=== PATIENT | female | born 1935 | race American Indian/Alaskan Native ===

== ENCOUNTER 2016-09-03 08:46 | Inpatient (IN) | payer MEDICARE ==
--- NOTE | 2016-09-03 10:15 | Emergency Department Report ---
HPI - General Chief Complaint: Abdominal Pain Time Seen by Provider: 09/03/16 09:33 - HPI HPI: This is a 81-year-old Afro-Macedonian female who presents to the emergency department from home with her daughter at bedside with the complaint of progressive worsening abdominal distention over the past 2 weeks. More recently has started to cause her to have shortness of breath. She denies any abdominal pain or chest pain. 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 She also has a history of remote breast cancer with bilateral mastectomies. The daughter says that the patient started having this abdominal distention a few weeks ago when she was placed on Xarelto. Since that time she has been switched to Eloquist but the distention is continued. She denies any nausea, vomiting, fever, back pain, dysuria. She has not taken anything for symptoms prior to presentation. Her primary care doctor is Brigido reynolds. No recent travel or sick contacts at home. ED Past Medical Hx - Past Medical History Previous Medical History?: Yes Hx Hypertension: Yes Hx Diabetes: Yes Hx of Cancer: Yes (Bilat breast) Additional medical history: B lower ext DVT's - Surgical History Past Surgical History?: Yes Hx Breast Surgery: Yes (bilateral mastectomy) Additional Surgical History: right foot surgery. hysterectomy - Social History Smoking Status: Never Smoker Substance Use Type: None - Medications Home Medications: Home Medications Medication Instructions Recorded Confirmed Last Taken Type Amlodipine Besylate/Benazepril 1 each PO Q12H 09/03/16 09/03/16 Unknown History [Amlodipine-Benazepril 5-20 mg] Apixaban [Eliquis] 5 mg PO DAILY 09/03/16 09/03/16 09/02/16 History Aspirin 81 mg PO DAILY 09/03/16 09/03/16 Unknown History AtorvaSTATin [Lipitor] 40 mg PO DAILY 09/03/16 09/03/16 Unknown History Dorzolamide HCl 1 drop OU BID 09/03/16 09/03/16 Unknown History Ergocalciferol [Vitamin D2] 1 cap PO QWEEK 09/03/16 09/03/16 Unknown History Glimepiride [Amaryl] 4 mg PO BID 09/03/16 09/03/16 Unknown History Hydrochlorothiazide [Hctz] 12.5 mg PO QDAY 09/03/16 09/03/16 Unknown History Insulin Glargine [Lantus] 6 unit SUB-Q QHS 09/03/16 09/03/16 Unknown History LORazepam [Ativan] 0.5 mg PO BID PRN 09/03/16 09/03/16 Unknown History Naproxen [Naprosyn] 500 mg PO BID 09/03/16 09/03/16 Unknown History Propranolol HCl 80 mg PO BID 09/03/16 09/03/16 Unknown History Travoprost (Benzalkonium) 1 drop OU HS 09/03/16 09/03/16 Unknown History [Travoprost 0.004% Eye Drop] metFORMIN [Glucophage] 1,000 mg PO BID 09/03/16 09/03/16 Unknown History ED Review of Systems ROS: Stated complaint: SOB Other details as noted in HPI Comment: All other systems reviewed and negative Constitutional: denies: chills, fever Eyes: denies: eye pain, eye discharge, vision change ENT: denies: ear pain, throat pain Respiratory: shortness of breath. denies: cough, wheezing Cardiovascular: denies: chest pain, palpitations Gastrointestinal: other (abd distention). denies: nausea, vomiting Genitourinary: denies: urgency, dysuria, discharge Musculoskeletal: denies: back pain, joint swelling, arthralgia Skin: denies: rash, lesions Neurological: denies: headache, weakness, paresthesias Physical Exam - Physical Exam Vital Signs: Vital Signs 09/03/16 09/03/16 08:55 09:18 Temperature 97.6 F Pulse Rate 90 Respiratory 18 18 Rate Blood Pressure 107/65 O2 Sat by Pulse 96 Oximetry Physical Exam: GENERAL: The patient is well-developed well-nourished. HEENT: Normocephalic. Atraumatic. Extraocular motions are intact. Patient has moist mucous membranes. Pupils equal reactive to light bilaterally. NECK: Supple. Trachea is midline. CHEST/LUNGS: Coarse breath sounds throughout the chest. No tachypnea or accessory muscle use. There is no respiratory distress noted. HEART/CARDIOVASCULAR: Regular. There is no tachycardia. There is no gallop rub or murmur. ABDOMEN: Abdomen is soft, nontender. Positive fluid wave consistent with ascites. Patient has normal bowel sounds. There is moderate to severe abdominal distention but it is not rigid. SKIN: There is no rash. There is no diaphoresis. NEURO: The patient is awake, alert, and oriented. The patient is cooperative. The patient has no focal neurologic deficits. The patient has normal speech. MUSCULOSKELETAL: There is no tenderness or deformity. There is no limitation range of motion. There is no evidence of acute injury. ED Course Vital Signs 09/03/16 09/03/16 08:55 09:18 Temperature 97.6 F Pulse Rate 90 Respiratory 18 18 Rate Blood Pressure 107/65 O2 Sat by Pulse 96 Oximetry ED Medical Decision Making - Lab Data Result diagrams: 09/03/16 10:03 09/03/16 10:03 - EKG Data -: EKG Interpreted by Me EKG shows normal: sinus rhythm (with sinus arrhythmia), axis, intervals, QRS complexes, ST-T waves Rate: normal - EKG Data When compared to previous EKG there are: previous EKG unavailable Interpretation: normal EKG - Radiology Data Radiology results: report reviewed, image reviewed interpreted by me: Chest x-ray shows moderate cardiomegaly and bilateral pleural effusions. No pneumothorax. There is pulmonary vascular congestion. Abdominal x-ray does not show any obvious acute process. No signs of obstruction. CT of the abdomen and pelvis without contrast shows bilateral pleural effusion. Moderate to large amount of the ascites fluid in the abdomen. Liver appears small in size however no abnormal attenuation is noted. Normal gallbladder. Spleen is not visualized. - Medical Decision Making 81-year-old female presents with progressively worsening two-week history of abdominal distention and now more recently some shortness of breath. Patient has moderate to large amount of ascites as well as some pleural effusions. The ascites and abdomen are pushing up on the patient's diaphragm most likely causing the shortness breath, as well as the pleural effusions and the lungs. Patient denies any significant alcohol history. Patient has some renal insufficiency so CT of the abdomen and pelvis was done without contrast. What was seen regarding the liver did not appear to show any abnormalities but once again contrast was not able to be used. It did show the pleural effusions and moderate to large amount of ascites. Patient will be admitted to hospital for further evaluation and treatment and has been accepted for admission by the hospitalist, Dr. Martinez. - Differential Diagnosis hepatitis, cirrhosis, CHF, pneumonia Critical Care Time: No Critical care attestation.: If time is entered above; I have spent that time in minutes in the direct care of this critically ill patient, excluding procedure time. ED Disposition Clinical Impression: Pleural effusion, Renal insufficiency Ascites Qualifiers: Ascites type: other type Qualified Code(s): R18.8 - Other ascites Dyspnea Qualifiers: Dyspnea type: unspecified Qualified Code(s): R06.00 - Dyspnea, unspecified Disposition: OP ADMITTED IP TO THIS HOSP Is pt being admited?: Yes Condition: Stable Instructions: Abdominal Pain (ED) Referrals: PRIMARY CARE, [Primary Care Provider] - 3-5 Days Time of Disposition: 14:01
[2016-09-03 10:28] LABS: Basophils % (Auto) 0.5 % (0.0-1.8); Eosinophils % (Auto) 0.3 % (0.0-4.3); Hematocrit 40.2 % (30.3-42.9); Hemoglobin 12.9 gm/dl (10.1-14.3); Mean Corpuscular HGB Conc 32 % (30-34); Mean Corpuscular Hemoglobin 27 pg (28-32); Mean Corpuscular Volume 85 fl (79-97); Platelet Count 341 K/mm3 (140-440); Red Blood Count 4.75 M/mm3 (3.65-5.03); White Blood Count 12.3 K/mm3 (4.5-11.0)
[2016-09-03 10:32] LABS: INR 1.27 (0.87-1.13); Partial Thromboplastin Time 28.7 Sec. (24.2-36.6)
[2016-09-03 10:38] LABS: Alanine Aminotransferase 7 units/L (7-56); Albumin 2.4 g/dL (3.9-5); Albumin/Globulin Ratio 0.6 %; Alkaline Phosphatase 67 units/L (35-129); Anion Gap 22 mmol/L; Bilirubin,Total 0.4 mg/dL (0.1-1.2); Blood Urea Nitrogen 58 mg/dL (7-17); Calcium 9.2 mg/dL (8.4-10.2); Carbon Dioxide 22 mmol/L (22-30); Chloride 99.8 mmol/L (98-107); Glucose 105 mg/dL (65-100); Lipase 32 units/L (13-60); Potassium 4.9 mmol/L (3.6-5.0); Sodium 139 mmol/L (137-145); Total Protein 6.7 g/dL (6.3-8.2)
[2016-09-03 10:49] LABS: Bilirubin,Direct < 0.2 mg/dL (0-0.2); Bilirubin,Indirect 0.2 mg/dL
--- NOTE | 2016-09-03 11:18 | XRay Report ---
Chest 2 views: History: Shortness of breath. Findings: Cardiomegaly. Trachea is midline. Bilateral moderate pleural effusion with bibasilar densities probably suggestive compressive atelectasis or segmental atelectasis/pneumonitis. Impression: Findings as detailed above. Probability of CHF or bibasilar atelectasis/pneumonitis with pleural effusion.
--- NOTE | 2016-09-03 11:18 | XRay Report ---
Abdomen 2 views: History: Abdominal pain. Findings: No free intraperitoneal air. No bowel distention or fluid levels. No wall thickening. No radiopaque calculus or abnormal calcification. Impression: No evidence of bowel distention or obstruction.
[2016-09-03 12:01] LABS: Bacteria,Urine 1+ /HPF (Negative); Bilirubin,Urine NEG (Negative); Blood,Urine NEG (Negative); Ketones,Urine TR mg/dL (Negative); Leukocyte Esterase,Urine NEG (Negative); Mucus,Urine FEW /HPF; Nitrite,Urine NEG (Negative); Protein,Urine <15 mg/dL mg/dL (Negative); RBC,Urine < 1.0 /HPF (0.0-6.0); Urobilinogen,Urine < 2.0 mg/dL (<2.0); WBC,Urine < 1.0 /HPF (0.0-6.0)
--- NOTE | 2016-09-03 12:29 | Cat Scan Report ---
CT scan of abdomen and pelvis without IV contrast: History: Abdominal distention. Findings: Bilateral pleural effusion. Moderate to large amount of ascitic fluid in the abdomen. Liver appears small in size however no abnormal attenuation is noted. Normal gallbladder. Spleen is not visualized. Normal adrenals and kidney parenchyma. Normal bladder. Gaseous colon with stool in colon. No bowel distention. Suspicion of diverticulosis sigmoid colon. Impression: Very large volume ascites. No bowel distention. Bilateral pleural effusion. Small liver. Small spleen.
[2016-09-03] MEDS ORDERED: LASIX IV ONE (13:07)
[2016-09-03] MEDS ORDERED: ATIVAN PO PRN (14:31)
[2016-09-03] MEDS ORDERED: D50W (25GM) IV PRN (14:35)
[2016-09-03] MEDS ORDERED: AMLODIPINE BESYLATE PO SCH (14:45)
[2016-09-03] MEDS ORDERED: BENAZEPRIL PO SCH (14:45)
[2016-09-03] MEDS ORDERED: LEVAQUIN 500MG/100ML 500 MG/100 ML BAG IV SCH (15:00)
[2016-09-03] MEDS: NORVASC PO SCH ×2 (15:26→22:00)
[2016-09-03] MEDS: ZESTRIL PO SCH ×2 (15:27→22:00)
[2016-09-03] MEDS ORDERED: ZESTRIL ONE (15:29)
[2016-09-03] MEDS ORDERED: NORVASC ONE (15:29)
--- NOTE | 2016-09-03 17:48 | History and Physical Report ---
History of Present Illness Date of examination: 09/03/16 Date of admission: 09/03/16 15:11 Chief complaint: Abdomen swollen History of present illness: Patient is 81-year-old woman with a history of type 2 diabetes mellitus, hypertension and bilateral breast cancer status post bilateral mastectomy who was recently taken off of Arimidex after 10 year course who presents with severe progressively worse constant abdominal swelling for last week. On 2015 VASCULAR LAB.PRELIMINARY REPORT.RLE VENOUS DUPLEX DONE.EVIDENCE OF ACUTE DVT IN THE RT.CFV EXTENDING TO THE RT.PX SFV, RT.POPLITEAL V AND RT.PTV/ PERONEAL VEINS. INFORMED AT 1204 AND TOLD PATIENT TO COME BACK TO THE OFFICE FOR MEDICATIONS. She was started on Xarelto, did not tolerate it and was switched to Eliquis and that is when the swelling started per daughter at bedside Tea Lombardo. Patient denies any shortness of breath, chest pain, fever, chills, abdominal pain, nausea vomiting. Past History Past Medical History: other (as hpi) Past Surgical History: hysterectomy, mastectomy (bilateral), Other (foot surgery ) Social history: full code. denies: smoking, alcohol abuse, prescription drug abuse, IV drug use Family history: diabetes, hypertension Medications and Allergies Allergies Allergy/AdvReac Type Severity Reaction Status Date / Time ampicillin Allergy Rash Verified 01/30/15 08:13 Home Medications Medication Instructions Recorded Confirmed Last Taken Type Amlodipine Besylate/Benazepril 1 each PO Q12H 09/03/16 09/03/16 Unknown History [Amlodipine-Benazepril 5-20 mg] Apixaban [Eliquis] 5 mg PO DAILY 09/03/16 09/03/16 09/02/16 History Aspirin 81 mg PO DAILY 09/03/16 09/03/16 Unknown History AtorvaSTATin [Lipitor] 40 mg PO DAILY 09/03/16 09/03/16 Unknown History Dorzolamide HCl 1 drop OU BID 09/03/16 09/03/16 Unknown History Ergocalciferol [Vitamin D2] 1 cap PO QWEEK 09/03/16 09/03/16 Unknown History Glimepiride [Amaryl] 4 mg PO BID 09/03/16 09/03/16 Unknown History Hydrochlorothiazide [Hctz] 12.5 mg PO QDAY 09/03/16 09/03/16 Unknown History Insulin Glargine [Lantus] 6 unit SUB-Q QHS 09/03/16 09/03/16 Unknown History LORazepam [Ativan] 0.5 mg PO BID PRN 09/03/16 09/03/16 Unknown History Naproxen [Naprosyn] 500 mg PO BID 09/03/16 09/03/16 Unknown History Propranolol HCl 80 mg PO BID 09/03/16 09/03/16 Unknown History Travoprost (Benzalkonium) 1 drop OU HS 09/03/16 09/03/16 Unknown History [Travoprost 0.004% Eye Drop] metFORMIN [Glucophage] 1,000 mg PO BID 09/03/16 09/03/16 Unknown History Active Meds: Active Medications Amlodipine Besylate (Norvasc) 5 mg PO Q12HR [facility] Last Admin: 09/03/16 15:26 Dose: 5 mg Apixaban (Eliquis) 5 mg PO DAILY [facility] Dextrose (D50w (25gm)) 50 ml IV PRN PRN PRN Reason: Hypoglycemia Levofloxacin/Dextrose (Levaquin 500mg/100ml) 500 mg in 100 mls @ 0 mls/hr IV Q24HR LON PRN Reason: Protocol Last Admin: 09/03/16 15:14 Dose: 100 mls/hr Metronidazole (Flagyl 500 Mg/100 Ml) 500 mg in 100 mls @ 0 mls/hr IV Q8HR [facility] Insulin Aspart (Novolog) 0 units SUB-Q ACHS LON PRN Reason: Protocol Lisinopril (Zestril) 20 mg PO Q12HR [facility] Last Admin: 09/03/16 15:27 Dose: 20 mg Lorazepam (Ativan) 0.5 mg PO BID PRN PRN Reason: Anxiety Miscellaneous Medication (Dorzolamide Hcl [Dorzolamide Hcl]) 1 drop OU BID [facility] Miscellaneous Medication (Travoprost (Benzalkonium) [Travoprost 0.004% Eye Drop] ) 1 drop OU HS LON Propranolol HCl (Inderal) 80 mg PO BID [facility] Review of Systems All systems: negative (as HPI and all other ROS reviewed and negative.) Exam - Physical Exam Narrative exam: GEN: Cachectic with mild increase accessory muscles with conversation, AWAKE, ALERT, ORIENTATED x2 HEENT: NCAT, PERRL, EOMI, OP CLEAR NECK: SUPPLE, NO THYROMEGALY, NO JVD, NO LAD CVS: regular tachycardia, NORMAL S1S2 LUNGS/CHEST: bilateral crackles, NORMAL CHEST EXPANSION B, diminished AIR ENTRY B ABD: distended with fluid wave GBS, NO REBOUND OR GUARDING EXT/SKIN: SIGNIFICANT EDEMA with flank anasarca, bilateral leg edema MSK: left leg is shortened and turned outward, severe tenderness and LROM left ankle NEURO: CN 2-12 GROSSLY INTACT, NO new FOCAL DEFICITS PSY: CALM - Constitutional Vitals: Temp Pulse Resp BP Pulse Ox 97.3 F L 100 H 18 107/73 97 09/03/16 16:00 09/03/16 16:00 09/03/16 16:00 09/03/16 16:00 09/03/16 14:51 Results - Labs CBC & Chem 7: 09/03/16 10:03 09/03/16 10:03 Assessment and Plan Patient is 81-year-old woman with a history of type 2 diabetes mellitus, hypertension and bilateral breast cancer status post bilateral mastectomy who was recently taken off of Arimidex after 10 year course who presents with severe progressively worse constant abdominal swelling for last week. On 2015 VASCULAR LAB.PRELIMINARY REPORT.RLE VENOUS DUPLEX DONE.EVIDENCE OF ACUTE DVT IN THE RT.CFV EXTENDING TO THE RT.PX SFV, RT.POPLITEAL V AND RT.PTV/ PERONEAL VEINS. INFORMED AT 1204 AND TOLD PATIENT TO COME BACK TO THE OFFICE FOR MEDICATIONS. She was started on Xarelto, did not tolerate it and was switched to Eliquis and that is when the swelling started per daughter at bedside Tea Lombardo. Patient denies any shortness of breath, chest pain, fever, chills, abdominal pain, nausea or vomiting. CT abdomen and pelvis without IV contrast because her creatinine is 2.0: Bilateral pleural effusion, moderate to large amount ascites fluid in the abdomen. Liver appears small in size however no abdomenattenuation is noted. Normal gallbladder. Spleen is not visualized. 1. New onset Ascites: get therapeutic and diagnostic paracentesis but difficult on Eliquis, empirically treated for SBP, ?portal hypertensive ?post obstructive. Consult GI, treat with diuretics, already on propanolol. 2. ARF, vasomotor: treat the above 3. Ble chronic leg dvt 4. Breast cancer, chronic and ?worsening 5. Severe protein calorie malnutrition related to the above: Consult dietary Consult interventional radiology for paracentesis please sent for: cell count, culture: Total protein, Gram stain, cytology and consult GI albumin level of the serum and ascitic fluid Consult GI Hold Eliquis, use heparin for DVT prophylaxis
[2016-09-03] MEDS: NOVOLOG SUB-Q SCH ×2 (18:33→22:02)
[2016-09-03] MEDS ORDERED: ALDACTONE PO SCH (22:00)
[2016-09-03] MEDS ORDERED: DORZOLAMIDE HCL OU SCH (22:00)
[2016-09-03] MEDS: ALDACTONE PO SCH (22:00)
[2016-09-03] MEDS ORDERED: PROPRANOLOL HCL 80 MG PO SCH (22:00)
[2016-09-03] MEDS: INDERAL PO SCH (22:00)
[2016-09-03] MEDS ORDERED: NON-FORMULARY (Travoprost (Benzalkonium) [Travoprost 0.004% Eye Drop] 1 DROP) OU SCH (22:00)
[2016-09-03] MEDS: HEPARIN SUB-Q SCH (22:06)
[2016-09-03] MEDS: DORZOLAMIDE HCL OU SCH (22:06)
[2016-09-03] MEDS: FLAGYL 500 MG/100 ML 500 MG/100 ML BAG IV SCH (22:06)
--- NOTE | 2016-09-03 23:57 | Admit Criteria Form ---
Admission Criteria Documentation: ABDOMINAL PAIN Clinical Indications for Admission to Inpatient Care (Place 'X' for any and all applicable criteria): Admission is indicated for ANY ONE of the following(1)(2)(3)(4)(5): [X ]I. Inpatient admission required rather than observation care (Also use Abdominal Pain: Observation Care, as appropriate) because of ANY ONE of the following: [ ]a) Severe pain requiring acute inpatient management [ X]b) Identification of etiology/finding that requires inpatient care (eg, aortic dissection, free air) [ ]c) Absent bowel sounds with complete ileus(6) [ ]d) Suspected toxic megacolon [ ]e) Severe electrolyte abnormalities requiring inpatient care [ ]f) High fever or infection requiring inpatient admission as indicated by ANY ONE of following(7)(8): [ ] i) Appropriate outpatient or observational care antimicrobial treatment unavailable, not effective, or not feasible [ ] ii) Documented bacteremia [ ] iii) Temperature > 104.9 degrees F (oral) [ ] iv) T >103.1 F (oral) or < 96.8 F(rectal) that does not respond to all emergency treatment measures [ ]g) Signs of intestinal obstruction [B] [ ]h) Hemodynamic instability [ ]i) IV fluid to replace significant ongoing losses (greater than 3 L/m2 per day) (12)(13) [ ]j) Percutaneous or open drainage (eg, abscess, biliary tract ) procedures [ ]k) Parenteral nutrition regimen that must be implemented on inpatient basis [X ]l) Other condition,treatment or monitoring requiring inpatient admission. [ ]II. Peritoneal signs present [ ]III. Surgery needed that cannot be performed on an ambulatory basis. [ ]IV. Evaluation requires patient to not eat or drink for extended period ( eg, more than 24 hours). [ ]V. Contraindications and/or Inappropriate clinical situations for Observational Care in patients with abdominal pain, when ANY ONE of the following is required: [ ]a) Thorough evaluation is required to prevent catastrophic events due to delays in diagnosing (e.g.Mesenteric ischemia) 1,3 [ ]b) Patient with severe pathology or with chronic symptoms unlikely to improve in the ED stay (3) [ ]. General contraindications and/or Inappropriate clinical situations for Observational Care in patients with abdominal pain, when ANY ONE of the following is required: [ ]a) Prediction of prolongation of LOS based on ANY ONE of the following may be considered as a contraindication for observational care 2, 3, 4, 5, 6, 7, 8, 9, 10, 11 [ ]i) Age > 65 yrs. [ ]ii) Patient arriving by ambulance [ ]iii) Patient with high acuity [ ]iv) Patient requiring vital sign monitoring [ ]v) Patient on IV medication [ ]b) Systolic blood pressures 180mmHg 3,12 [ ]c) Patient with altered mental status including delirium and other alteration of consciousness, (3) [ ]d) Patient whose discharge disposition will be to a shelter home or rehabilitation home should not be managed in Emergency Department Observation Unit. CMS rule requires 3 days hospital stay before such placement.3,13 [ ]e) Patient with failure to thrive due to broad array of etiologies 3,16,17 [ ]f) Inability to ambulate 3,14 Extended stay beyond goal length of stay may be needed for(2)(3): [ ]a) Persistent abdominal pain with suspected intra-abdominal process [ ]b) Diagnosed condition requiring continued stay (e.g., pancreatitis, complicated diverticulitis) [ ]c) Surgery (e.g., colectomy) The original [facility] content created by [employer] has been revised. The portions of the content which have been revised are identified through the use of italic text or in bold, and [facility] has neither reviewed nor approved the modified material.All other unmodified content is copyright [facility]. Please see references footnoted in the original [facility] edition 2016 Admission Criteria Met: Yes
[2016-09-04] MEDS ORDERED: NACL 0.9% 500 ML 500 ML IV ONE (03:43)
[2016-09-04] MEDS: FLAGYL 500 MG/100 ML 500 MG/100 ML BAG IV SCH ×3 (05:45→21:37)
[2016-09-04] MEDS: HEPARIN SUB-Q SCH ×3 (05:46→21:38)
[2016-09-04] MEDS ORDERED: LASIX IV SCH (06:00)
[2016-09-04] MEDS: NOVOLOG SUB-Q SCH ×4 (07:47→22:30)
--- NOTE | 2016-09-04 09:10 | XRay Report ---
Left ankle 3 views: History: Pain. Findings: Soft tissue swelling lateral malleolus. No fracture or dislocation. Impression: No evidence of acute fracture.
--- NOTE | 2016-09-04 09:10 | XRay Report ---
Left hip 3 views: History: Pain. Findings: Mild arthritic changes the joint. No fracture dislocation or soft tissue calcification. Impression: Arthritic changes left hip.
[2016-09-04 09:39] LABS: Hematocrit 36.3 % (30.3-42.9); Mean Corpuscular HGB Conc 33 % (30-34); Mean Corpuscular Hemoglobin 28 pg (28-32); Mean Corpuscular Volume 84 fl (79-97); Platelet Count 314 K/mm3 (140-440); Red Blood Count 4.32 M/mm3 (3.65-5.03); Red Cell Distribution Width 15.5 % (13.2-15.2); White Blood Count 9.9 K/mm3 (4.5-11.0)
[2016-09-04 09:53] LABS: BUN/Creatinine Ratio 29.52; Calcium 9.1 mg/dL (8.4-10.2); Chloride 100.1 mmol/L (98-107); Potassium 4.1 mmol/L (3.6-5.0)
[2016-09-04] MEDS ORDERED: ELIQUIS PO SCH (10:00)
--- NOTE | 2016-09-04 10:21 | Progress Note ---
Assessment and Plan Assessment and plan: Gross ascitis. Etiology unclear. For paracentesis tomorrow and peritoneal fluid analysis. GI consulted. Acute renal failure. Creatinine 2.1 today. baseline was normal, 0.7 two months ago. Will Insert jackson. Consult Nephrology radiotelephone technical operator. Get renal Ultrasound. Diabetes mellitus type 2. Fingerstick glucose before every meal and at bedtime. She is on insulin sliding scale Hypertension. BP borderline low. Will monitor. Breast cancer s/p bilateral mastectomy DVT. Eliquis on hold because of anticipated paracentesis DVT prophylaxis with SCDs FULL CODE STATUS History Interval history: Abdominal distension, Abdominal disconfort Hospitalist Physical - Physical exam Narrative exam: Gen appearance: not in acute distress, HEENT: Normocephalic, atraumatic Neck : supple, no JVD Lungs: Lungs clear to auscultation bilaterally, no crackles or wheeze. Heart : S1 and S2 regular, no murmurs rubs or gallop, Abdomen: soft, non-tender, gross distended, normal bowel sounds Extremities: No edema, clubbing, or cyanosis, Neuro :awake ,alert , oriented x 3, no focal signs Psych: calm - Constitutional Vitals: Temp Pulse Resp BP Pulse Ox 97.9 F 96 H 20 93/59 95 09/04/16 08:48 09/04/16 08:48 09/04/16 08:48 09/04/16 08:48 09/04/16 00:00 Results - Labs CBC & Chem 7: 09/04/16 09:04 09/05/16 05:58 Labs: Laboratory Last Values WBC 9.9 K/mm3 (4.5-11.0) 09/04/16 09:04 RBC 4.32 M/mm3 (3.65-5.03) 09/04/16 09:04 Hgb 12.0 gm/dl (10.1-14.3) 09/04/16 09:04 Hct 36.3 % (30.3-42.9) 09/04/16 09:04 MCV 84 fl (79-97) 09/04/16 09:04 MCH 28 pg (28-32) 09/04/16 09:04 MCHC 33 % (30-34) 09/04/16 09:04 RDW 15.5 % (13.2-15.2) H 09/04/16 09:04 Plt Count 314 K/mm3 (140-440) 09/04/16 09:04 Lymph % (Auto) 6.1 % (13.4-35.0) L 09/03/16 10:03 [place] % (Auto) 11.4 % (0.0-7.3) H 09/03/16 10:03 Eos % (Auto) 0.3 % (0.0-4.3) 09/03/16 10:03 Baso % (Auto) 0.5 % (0.0-1.8) 09/03/16 10:03 Lymph # 0.8 K/mm3 (1.2-5.4) L 09/03/16 10:03 [place] # 1.4 K/mm3 (0.0-0.8) H 09/03/16 10:03 Eos # 0.0 K/mm3 (0.0-0.4) 09/03/16 10:03 Baso # 0.1 K/mm3 (0.0-0.1) 09/03/16 10:03 Seg Neutrophils % 81.7 % (40.0-70.0) H 09/03/16 10:03 Seg Neutrophils # 10.0 K/mm3 (1.8-7.7) H 09/03/16 10:03 PT 15.8 Sec. (12.2-14.9) H 09/03/16 10:03 INR 1.27 (0.87-1.13) H 09/03/16 10:03 APTT 28.7 Sec. (24.2-36.6) 09/03/16 10:03 Sodium 140 mmol/L (137-145) 09/04/16 09:04 Potassium 4.1 mmol/L (3.6-5.0) 09/04/16 09:04 Chloride 100.1 mmol/L (98-107) 09/04/16 09:04 Carbon Dioxide 24 mmol/L (22-30) 09/04/16 09:04 Anion Gap 20 mmol/L 09/04/16 09:04 BUN 62 mg/dL (7-17) H 09/04/16 09:04 Creatinine 2.1 mg/dL (0.7-1.2) H 09/04/16 09:04 Estimated GFR 27 ml/min 09/04/16 09:04 BUN/Creatinine Ratio 29.52 % 09/04/16 09:04 Glucose 101 mg/dL (65-100) H 09/04/16 09:04 POC Glucose 113 (70-105) H 09/04/16 06:03 Calcium 9.1 mg/dL (8.4-10.2) 09/04/16 09:04 Total Bilirubin 0.4 mg/dL (0.1-1.2) 09/03/16 10:03 Direct Bilirubin < 0.2 mg/dL (0-0.2) 09/03/16 10:03 Indirect Bilirubin 0.2 mg/dL 09/03/16 10:03 AST 23 units/L (5-40) 09/03/16 10:03 ALT 7 units/L (7-56) 09/03/16 10:03 Alkaline Phosphatase 67 units/L (35-129) 09/03/16 10:03 Troponin T < 0.010 ng/mL (0.00-0.029) 09/03/16 10:03 NT-Pro-B Natriuret Pep 545.8 pg/mL (0-900) 09/03/16 12:47 Total Protein 6.7 g/dL (6.3-8.2) 09/03/16 10:03 Albumin 2.4 g/dL (3.9-5) L 09/03/16 10:03 Albumin/Globulin Ratio 0.6 % 09/03/16 10:03 Lipase 32 units/L (13-60) 09/03/16 10:03 Urine Color Yellow (Yellow) 09/03/16 11:12 Urine Turbidity Slightly-cloudy (Clear) 09/03/16 11:12 Urine pH 5.0 (5.0-7.0) 09/03/16 11:12 Ur Specific [place] 1.017 (1.003-1.030) 09/03/16 11:12 Urine Protein <15 mg/dl mg/dL (Negative) 09/03/16 11:12 Urine Glucose (UA) Neg mg/dL (Negative) 09/03/16 11:12 Urine Ketones Tr mg/dL (Negative) 09/03/16 11:12 Urine Blood Neg (Negative) 09/03/16 11:12 Urine Nitrite Neg (Negative) 09/03/16 11:12 Urine Bilirubin Neg (Negative) 09/03/16 11:12 Urine Urobilinogen < 2.0 mg/dL (<2.0) 09/03/16 11:12 Ur Leukocyte Esterase Neg (Negative) 09/03/16 11:12 Urine WBC (Auto) < 1.0 /HPF (0.0-6.0) 09/03/16 11:12 Urine RBC (Auto) < 1.0 /HPF (0.0-6.0) 09/03/16 11:12 Urine Bacteria (Auto) 1+ /HPF (Negative) 09/03/16 11:12 Urine Mucus Few /HPF 09/03/16 11:12
[2016-09-04] MEDS: DORZOLAMIDE HCL OU SCH ×2 (10:27→21:38)
[2016-09-04] MEDS: ALDACTONE PO SCH ×2 (10:45→21:34)
[2016-09-04] MEDS: NORVASC PO SCH (10:46)
[2016-09-04] MEDS: INDERAL PO SCH ×2 (10:46→21:33)
[2016-09-04] MEDS: ZESTRIL PO SCH (10:47)
--- NOTE | 2016-09-04 13:40 | Consultation ---
History of Present Illness - Reason for Consult Consult date: 09/04/16 acute renal failure - History of Present Illness Patient is 81 year old AAF history significant for Type 2 diabetes mellitus, Hypertension and bilateral breast cancer status post bilateral mastectomy who presents with progressively worsening abdominal distention for the past 2 and a half weeks. History was also supplemented by her daughter who was at the bedside. Patient was diagnosed with right LE acute DVT on 07/01/16. She was started on Xarelto, did not tolerate it and was switched to Eliquis. Her appetite has been poor for the past week and PO intake has decreased. Patient has intermittent nausea. She is also feeling weak generally and fell twice at home. Her creatinine during this admission is 2.1, increased from 0.7 last month. Bustos drained about 600 ml of urine today. Patient denies any dysuria, hematuria, fever, sore throat, jaundice, rash, leg swelling, dizziness, syncope , shortness of breath, chest pain, vomiting or diarrhea. Past History Past Medical History: diabetes, DVT, hypertension, hyperlipidemia, other (as hpi ) Past Surgical History: hysterectomy, mastectomy (bilateral), Other (foot surgery ) Social history: full code. denies: smoking, alcohol abuse, prescription drug abuse, IV drug use Family history: diabetes, hypertension Medications and Allergies Allergies Allergy/AdvReac Type Severity Reaction Status Date / Time ampicillin Allergy Rash Verified 01/30/15 08:13 Home Medications Medication Instructions Recorded Confirmed Last Taken Type Amlodipine Besylate/Benazepril 1 each PO Q12H 09/03/16 09/03/16 Unknown History [Amlodipine-Benazepril 5-20 mg] Apixaban [Eliquis] 5 mg PO DAILY 09/03/16 09/03/16 09/02/16 History Aspirin 81 mg PO DAILY 09/03/16 09/03/16 Unknown History AtorvaSTATin [Lipitor] 40 mg PO DAILY 09/03/16 09/03/16 Unknown History Dorzolamide HCl 1 drop OU BID 09/03/16 09/03/16 Unknown History Ergocalciferol [Vitamin D2] 1 cap PO QWEEK 09/03/16 09/03/16 Unknown History Glimepiride [Amaryl] 4 mg PO BID 09/03/16 09/03/16 Unknown History Hydrochlorothiazide [Hctz] 12.5 mg PO QDAY 09/03/16 09/03/16 Unknown History Insulin Glargine [Lantus] 6 unit SUB-Q QHS 09/03/16 09/03/16 Unknown History LORazepam [Ativan] 0.5 mg PO BID PRN 09/03/16 09/03/16 Unknown History Naproxen [Naprosyn] 500 mg PO BID 09/03/16 09/03/16 Unknown History Propranolol HCl 80 mg PO BID 09/03/16 09/03/16 Unknown History Travoprost (Benzalkonium) 1 drop OU HS 09/03/16 09/03/16 Unknown History [Travoprost 0.004% Eye Drop] metFORMIN [Glucophage] 1,000 mg PO BID 09/03/16 09/03/16 Unknown History Active Meds: Active Medications Dextrose (D50w (25gm)) 50 ml IV PRN PRN PRN Reason: Hypoglycemia Furosemide (Lasix) 20 mg IV 0600,1800 [facility] Last Admin: 09/04/16 05:46 Dose: Not Given Heparin Sodium (Porcine) (Heparin) 5,000 unit SUB-Q Q8HR [facility] Last Admin: 09/04/16 05:46 Dose: Not Given Metronidazole (Flagyl 500 Mg/100 Ml) 500 mg in 100 mls @ 0 mls/hr IV Q8HR [facility] Last Admin: 09/04/16 05:45 Dose: 100 mls/hr Levofloxacin/Dextrose (Levaquin 500mg/100ml) 500 mg in 100 mls @ 0 mls/hr IV Q48HR LON PRN Reason: Protocol Insulin Aspart (Novolog) 0 units SUB-Q ACHS LON PRN Reason: Protocol Last Admin: 09/04/16 07:47 Dose: Not Given Latanoprost (Xalatan 0.005%) 1 drops OU QPM LON Lorazepam (Ativan) 0.5 mg PO BID PRN PRN Reason: Anxiety Miscellaneous Medication (Dorzolamide Hcl [Dorzolamide Hcl]) 1 drop OU BID [facility] Last Admin: 09/04/16 10:27 Dose: 1 drop Propranolol HCl (Inderal) 80 mg PO BID [facility] Last Admin: 09/04/16 10:46 Dose: Not Given Spironolactone (Aldactone) 25 mg PO BID [facility] Last Admin: 09/04/16 10:45 Dose: Not Given Review of Systems Constitutional: weight gain, anorexia, fatigue, weakness, poor appetite, no fever, no chills Ears, nose, mouth and throat: no sinus pressure, no sinus pain Breasts: deferred Cardiovascular: no chest pain, no syncope, no shortness of breath Respiratory: no cough, no hemoptysis, no shortness of breath, no wheezing Gastrointestinal: nausea, no abdominal pain, no vomiting, no diarrhea, no hematemesis, no BRBPR, no melena, no jaundice Rectal: no bleeding Musculoskeletal: no neck stiffness, no redness of joints Integumentary: no rash Neurological: weakness, no head injury, no paralysis, no seizures, no syncope Psychiatric: change in appetite Hematologic/Lymphatic: no easy bruising, no easy bleeding Allergic/Immunologic: no wheezing, no persistent infections Exam - Vital Signs Vital signs: Vital Signs Temp Pulse Resp BP Pulse Ox 97.6 F 90 18 107/65 96 09/03/16 08:55 09/03/16 08:55 09/03/16 08:55 09/03/16 08:55 09/03/16 08:55 - General Appearance General appearance: well-developed, frail, other (no distress) EENT: PERRL, mucous membranes moist, hearing intact, vision intact Neck: Present: neck supple Respiratory: Clear to Ascultation Heart: regular, S1S2, no murmurs Gastrointestinal: Present: distended, other (ascites). Absent: tenderness Integumentary: no rash, warm and dry Neurologic: no focal deficit, no asterixis, alert and oriented x3, CN 3-12 intact Musculoskeletal: Present: other (no edema) Psychiatric: mood/affect appropriate, cooperative Results - Lab Results 09/04/16 09:04 09/04/16 09:04 Most recent lab results Calcium 9.1 mg/dL (8.4-10.2) 09/04/16 09:04 - Image Kidney/bladder ultrasound: pending Assessment and Plan - Patient Problems (1) THIAGO (acute kidney injury) Current Visit: Yes Status: Acute Plan to address problem: Acute kidney Injury in the setting of volume depletion, Acites and bladder outlet obstruction. S/p Bustos catheter. Start on Iv fluids. Urine lytes. (2) Ascites Current Visit: Yes Status: Acute Qualifiers: Ascites type: other type Qualified Code(s): R18.8 - Other ascites Plan to address problem: Pending paracentesis. (3) DM type 2 (diabetes mellitus, type 2) Current Visit: Yes Status: Acute Qualifiers: Diabetes mellitus complication status: D Diabetes mellitus complication detail: D Diabetic retinopathy severity: D Proliferative retinopathy type: P Diabetes mellitus macular edema: D Diabetes mellitus fdc insulin use : D Laterality: L Chronic kidney disease stage: C
[2016-09-04] MEDS: NACL 0.9% 1000 ML 1,000 ML IV SCH (15:07)
[2016-09-04] MEDS: XALATAN 0.005% OU SCH (17:28)
[2016-09-05] MEDS: HEPARIN SUB-Q SCH ×3 (06:37→21:57)
[2016-09-05] MEDS: FLAGYL 500 MG/100 ML 500 MG/100 ML BAG IV SCH ×3 (06:45→21:46)
[2016-09-05 06:58] LABS: BUN/Creatinine Ratio 30.52; Calcium 8.8 mg/dL (8.4-10.2); Chloride 99.5 mmol/L (98-107); Magnesium 2.2 mg/dL (1.7-2.3); Potassium 3.7 mmol/L (3.6-5.0)
--- NOTE | 2016-09-05 07:28 | Progress Note ---
Assessment and Plan - Patient Problems (1) THIAGO (acute kidney injury) Current Visit: Yes Status: Acute Plan to address problem: Acute kidney Injury in the setting of volume depletion, Acites and bladder outlet obstruction. S/p Bustos catheter. Creatinine gradually improving. Continue IV fluids. (2) Ascites Current Visit: Yes Status: Acute Qualifiers: Ascites type: other type Qualified Code(s): R18.8 - Other ascites Plan to address problem: Pending paracentesis. (3) DM type 2 (diabetes mellitus, type 2) Current Visit: Yes Status: Acute Qualifiers: Diabetes mellitus complication status: D Diabetes mellitus complication detail: D Diabetic retinopathy severity: D Proliferative retinopathy type: P Diabetes mellitus macular edema: D Diabetes mellitus sanitarian aide insulin use : D Laterality: L Chronic kidney disease stage: C Subjective Date of service: 09/05/16 Interval history: Patient is feeling better today. Objective - Vital Signs Vital signs: Vital Signs - 12hr 09/04/16 09/04/16 09/05/16 21:33 21:34 00:59 Temperature 98.1 F Pulse Rate 98 H 98 H Pulse Rate [ 98 H From Monitor] Pulse Rate [ 80 Right Radial] Respiratory 18 Rate Blood Pressure 91/61 91/61 Blood Pressure 91/61 97/67 [Left Arm] - General Appearance General appearance: well-developed, frail, other (no distress) EENT: PERRL, mucous membranes moist, hearing intact, vision intact Neck: supple Respiratory: Present: Rales Cardiology: regular, S1S2 Gastrointestinal: normoactive bowel sounds, no tenderness, distended, other ( ascites noted) Integumentary: no rash, warm and dry Neurologic: no focal deficit, no asterixis, alert and oriented x3, CN 3-12 intact Musculoskeletal: other (no extremity edema) Psychiatric: mood/affect appropriate, cooperative - Lab 09/04/16 09:04 09/05/16 05:58 Most recent lab results Calcium 8.8 mg/dL (8.4-10.2) 09/05/16 05:58 Magnesium 2.2 mg/dL (1.7-2.3) 09/05/16 05:58 Urine Creatinine 116.5 mg/dL (0.1-20.0) H 09/04/16 17:36 Urine Sodium 26 mEq/L 09/04/16 17:36
[2016-09-05] MEDS: NOVOLOG SUB-Q SCH ×4 (07:44→22:01)
--- NOTE | 2016-09-05 08:03 | Consultation ---
INDICATION: 1. Ascites. 2. Possible liver disease. HISTORY OF PRESENT ILLNESS: The patient is an 81-year-old black female with history of diabetes, hypertension, and bilateral breast cancer, status post mastectomy and was on Arimidex for 10 years until recently. The patient reports that over the recent months, she has noticed some slowly progressive abdominal swelling. She reports no history of liver disease in the past and never been told her liver numbers were abnormal. She reports no significant weight loss. She denies any nausea or vomiting. The patient subsequently had a CT scan, which showed moderate amount of ascites and GI was consulted. The liver appears small on CT scan, but no obvious signs of portal hypertension was noted. Again, she denies any family history of liver disease or risk factors for chronic liver disease. PAST MEDICAL HISTORY: 1. Diabetes. 2. Hypertension. 3. Bilateral breast cancer, status post mastectomy. 4. Status post hysterectomy. MEDICATIONS: See chart. ALLERGIES: AMPICILLIN. SOCIAL HISTORY: Denies alcohol, tobacco or drug abuse. FAMILY HISTORY: Negative for colon cancer. REVIEW OF SYSTEMS: GENERAL: Reports mild weakness. HEENT: No visual complaints or tinnitus. PULMONARY: Reports mild shortness of breath. No cough. No chest pain. GASTROINTESTINAL: Reports abdominal pain or swelling. All points of 13-point review of systems otherwise negative. PHYSICAL EXAMINATION: VITAL SIGNS: Temperature of 97.9, pulse 100, respirations 18, blood pressure 100/60. GENERAL: Fairly nourished female, in no acute distress. HEENT: Pupils equal, round, reactive to light and accommodation. Extraocular movements intact. PULMONARY: Clear to auscultation bilaterally. CARDIOVASCULAR: Regular rhythm. Normal S1, S2. ABDOMEN: Soft, distended, small fluid wave. SKIN: No obvious rashes. LABORATORY DATA: Pertinent for white count of 9.9, hemoglobin and hematocrit 12 and 36.3, platelet count of 314,000. Chem-7 within normal limits. LFTs within normal limits. CT scan showed moderate amount of ascites with a small liver. ASSESSMENT AND PLAN: An 81-year-old female being seen by GI for progressive abdominal swelling with CT scan showing ascites. The patient denies any history of known liver disease in the past. It is unclear as to whether or not this ascites is secondary to liver disease. The patient has been on Eliquis. Management is noted below. PLAN: 1. Vitamin K overnight. We will plan for paracentesis in a.m. 2. We will assess with paracentesis to aid in diagnosis of etiology. 3. We will get liver related labs. 4. No need of liver biopsy at this time, but we will consider based on progress. 5. Follow based on results of the above. JOB# [id number] [facility] MTDD
--- NOTE | 2016-09-05 08:37 | Ultrasound Report ---
ULTRASOUND RENAL BILATERAL HISTORY: Acute renal failure. Technique: Transabdominal ultrasound with color Doppler interrogation. FINDINGS: Compared to the noncontrast CT abdomen and pelvis dated 09/03/16. The right kidney measures 10.1 cm in length. The left kidney measures 10.0 cm in length. The renal parenchyma is mildly echogenic. There appeared to be multiple parapelvic cysts in both renal sinuses which is also suggested on CT. There is no evidence for cortical cyst, mass, calculus, hydronephrosis or perinephric fluid. The bladder is collapsed and contains a Bustos catheter. Moderate to large ascites is noted in the abdomen. IMPRESSION: Echogenic kidneys consistent with medical renal disease or acute renal failure. Multiple parapelvic cysts in the renal sinuses. No focal renal lesion or obstructive uropathy is appreciated. Largest ascites.
--- NOTE | 2016-09-05 08:58 | Gastroenterology Progress Note ---
Assessment and Plan GI: ascites unclear etiology, no obvious signs liver disease - for paracenthesis today and will follow results - liver labs ordered, awaiting results - liver ultrasound pending - will follow with further rec based on results of above Subjective Date of service: 09/05/16 Interval history: - no GI complaints overnight Objective - Constitutional Vitals: Temp Pulse Resp BP Pulse Ox 98.1 F 80 18 97/67 95 09/05/16 00:59 09/05/16 00:59 09/05/16 00:59 09/05/16 00:59 09/04/16 00:00 General appearance: no acute distress - EENT Eyes: PERRL - Respiratory Respiratory: bilateral: CTA - Cardiovascular Rhythm: regular Heart Sounds: Present: S1 & S2 - Gastrointestinal General gastrointestinal: Present: soft, non-tender - Labs CBC & Chem 7: 09/04/16 09:04 09/05/16 05:58 Labs: Laboratory Results - last 24 hr 09/04/16 09/04/16 09/04/16 09:04 09:04 12:24 WBC 9.9 RBC 4.32 Hgb 12.0 Hct 36.3 MCV 84 MCH 28 MCHC 33 RDW 15.5 H Plt Count 314 Sodium 140 Potassium 4.1 Chloride 100.1 Carbon Dioxide 24 Anion Gap 20 BUN 62 H Creatinine 2.1 H Estimated GFR 27 BUN/Creatinine Ratio 29.52 Glucose 101 H POC Glucose 132 H Calcium 9.1 Magnesium Urine Eosinophils Urine Creatinine Urine Sodium 09/04/16 09/04/16 09/04/16 16:51 17:36 17:36 WBC RBC Hgb Hct MCV MCH MCHC RDW Plt Count Sodium Potassium Chloride Carbon Dioxide Anion Gap BUN Creatinine Estimated GFR BUN/Creatinine Ratio Glucose POC Glucose 113 H Calcium Magnesium Urine Eosinophils 3 Urine Creatinine 116.5 H Urine Sodium 26 09/04/16 09/05/16 09/05/16 21:51 05:58 06:32 WBC RBC Hgb Hct MCV MCH MCHC RDW Plt Count Sodium 139 Potassium 3.7 Chloride 99.5 Carbon Dioxide 25 Anion Gap 18 BUN 58 H Creatinine 1.9 H Estimated GFR 31 BUN/Creatinine Ratio 30.52 Glucose 97 POC Glucose 108 H 98 Calcium 8.8 Magnesium 2.2 Urine Eosinophils Urine Creatinine Urine Sodium
[2016-09-05] MEDS ORDERED: LEVAQUIN 500MG/100ML 500 MG/100 ML BAG IV SCH (10:00)
[2016-09-05] MEDS: INDERAL PO SCH ×2 (10:13→21:55)
[2016-09-05] MEDS: ALDACTONE PO SCH ×2 (10:14→21:56)
[2016-09-05] MEDS: DORZOLAMIDE HCL OU SCH ×2 (10:15→21:57)
--- NOTE | 2016-09-05 13:03 | Progress Note ---
Assessment and Plan Assessment and plan: Gross ascitis. Etiology unclear. For paracentesis today in afternon. Peritoneal fluid analysis. GI consulted. Acute renal failure. Creatinine 1.9 today , was normal, 0.7 two months ago. Consulted Nephrology second butler. Diabetes mellitus type 2. Fingerstick glucose before every meal and at bedtime. She is on insulin sliding scale Hypertension. BP borderline low. Will monitor. Breast cancer s/p bilateral mastectomy DVT. Eliquis on hold because of anticipated paracentesis DVT prophylaxis with SCDs FULL CODE STATUS History Interval history: Abdominal distension, Abdominal discomfort, no fever Hospitalist Physical - Physical exam Narrative exam: Gen appearance: not in acute distress, HEENT: Normocephalic, atraumatic Neck : supple, no JVD Lungs: Lungs clear to auscultation bilaterally, no crackles or wheeze. Heart : S1 and S2 regular, no murmurs rubs or gallop, Abdomen: soft, non-tender, gross distended, normal bowel sounds Extremities: No edema, clubbing, or cyanosis, Neuro :awake ,alert , oriented x 3, no focal signs Psych: calm - Constitutional Vitals: Temp Pulse Resp BP Pulse Ox 97.7 F 100 H 20 100/60 94 09/05/16 08:09 09/05/16 10:13 09/05/16 08:09 09/05/16 10:13 09/05/16 08:09 Results - Labs CBC & Chem 7: 09/04/16 09:04 09/05/16 05:58 Labs: Laboratory Last Values WBC 9.9 K/mm3 (4.5-11.0) 09/04/16 09:04 RBC 4.32 M/mm3 (3.65-5.03) 09/04/16 09:04 Hgb 12.0 gm/dl (10.1-14.3) 09/04/16 09:04 Hct 36.3 % (30.3-42.9) 09/04/16 09:04 MCV 84 fl (79-97) 09/04/16 09:04 MCH 28 pg (28-32) 09/04/16 09:04 MCHC 33 % (30-34) 09/04/16 09:04 RDW 15.5 % (13.2-15.2) H 09/04/16 09:04 Plt Count 314 K/mm3 (140-440) 09/04/16 09:04 Lymph % (Auto) 6.1 % (13.4-35.0) L 09/03/16 10:03 [place] % (Auto) 11.4 % (0.0-7.3) H 09/03/16 10:03 Eos % (Auto) 0.3 % (0.0-4.3) 09/03/16 10:03 Baso % (Auto) 0.5 % (0.0-1.8) 09/03/16 10:03 Lymph # 0.8 K/mm3 (1.2-5.4) L 09/03/16 10:03 [place] # 1.4 K/mm3 (0.0-0.8) H 09/03/16 10:03 Eos # 0.0 K/mm3 (0.0-0.4) 09/03/16 10:03 Baso # 0.1 K/mm3 (0.0-0.1) 09/03/16 10:03 Seg Neutrophils % 81.7 % (40.0-70.0) H 09/03/16 10:03 Seg Neutrophils # 10.0 K/mm3 (1.8-7.7) H 09/03/16 10:03 PT 15.8 Sec. (12.2-14.9) H 09/03/16 10:03 INR 1.27 (0.87-1.13) H 09/03/16 10:03 APTT 28.7 Sec. (24.2-36.6) 09/03/16 10:03 Sodium 139 mmol/L (137-145) 09/05/16 05:58 Potassium 3.7 mmol/L (3.6-5.0) 09/05/16 05:58 Chloride 99.5 mmol/L (98-107) 09/05/16 05:58 Carbon Dioxide 25 mmol/L (22-30) 09/05/16 05:58 Anion Gap 18 mmol/L 09/05/16 05:58 BUN 58 mg/dL (7-17) H 09/05/16 05:58 Creatinine 1.9 mg/dL (0.7-1.2) H 09/05/16 05:58 Estimated GFR 31 ml/min 09/05/16 05:58 BUN/Creatinine Ratio 30.52 % 09/05/16 05:58 Glucose 97 mg/dL (65-100) 09/05/16 05:58 POC Glucose 141 (70-105) H 09/05/16 11:53 Calcium 8.8 mg/dL (8.4-10.2) 09/05/16 05:58 Magnesium 2.2 mg/dL (1.7-2.3) 09/05/16 05:58 Total Bilirubin 0.4 mg/dL (0.1-1.2) 09/03/16 10:03 Direct Bilirubin < 0.2 mg/dL (0-0.2) 09/03/16 10:03 Indirect Bilirubin 0.2 mg/dL 09/03/16 10:03 AST 23 units/L (5-40) 09/03/16 10:03 ALT 7 units/L (7-56) 09/03/16 10:03 Alkaline Phosphatase 67 units/L (35-129) 09/03/16 10:03 Troponin T < 0.010 ng/mL (0.00-0.029) 09/03/16 10:03 NT-Pro-B Natriuret Pep 545.8 pg/mL (0-900) 09/03/16 12:47 Total Protein 6.7 g/dL (6.3-8.2) 09/03/16 10:03 Albumin 2.4 g/dL (3.9-5) L 09/03/16 10:03 Albumin/Globulin Ratio 0.6 % 09/03/16 10:03 Lipase 32 units/L (13-60) 09/03/16 10:03 Urine Color Yellow (Yellow) 09/03/16 11:12 Urine Turbidity Slightly-cloudy (Clear) 09/03/16 11:12 Urine pH 5.0 (5.0-7.0) 09/03/16 11:12 Ur Specific [place] 1.017 (1.003-1.030) 09/03/16 11:12 Urine Protein <15 mg/dl mg/dL (Negative) 09/03/16 11:12 Urine Glucose (UA) Neg mg/dL (Negative) 09/03/16 11:12 Urine Ketones Tr mg/dL (Negative) 09/03/16 11:12 Urine Blood Neg (Negative) 09/03/16 11:12 Urine Nitrite Neg (Negative) 09/03/16 11:12 Urine Bilirubin Neg (Negative) 09/03/16 11:12 Urine Urobilinogen < 2.0 mg/dL (<2.0) 09/03/16 11:12 Ur Leukocyte Esterase Neg (Negative) 09/03/16 11:12 Urine WBC (Auto) < 1.0 /HPF (0.0-6.0) 09/03/16 11:12 Urine RBC (Auto) < 1.0 /HPF (0.0-6.0) 09/03/16 11:12 Urine Bacteria (Auto) 1+ /HPF (Negative) 09/03/16 11:12 Urine Mucus Few /HPF 09/03/16 11:12 Urine Eosinophils 3 (None Seen) 09/04/16 17:36 Urine Creatinine 116.5 mg/dL (0.1-20.0) H 09/04/16 17:36 Urine Sodium 26 mEq/L 09/04/16 17:36
[2016-09-05 17:16] LABS: Total Protein,Body Fluid 4.1 (15.0-45.0); Triglycerides,Body Fluid 37
[2016-09-05 17:28] LABS: LDH,Body Fluid 699
[2016-09-05] MEDS: XALATAN 0.005% OU SCH (18:00)
[2016-09-05 18:35] LABS: Eosinophils Body Fluid 0 %; Reactive Lymph Body Fluid 0 %
[2016-09-05] MEDS: NACL 0.9% 1000 ML 1,000 ML IV SCH (19:15)
[2016-09-06] MEDS: HEPARIN SUB-Q SCH ×3 (06:19→22:25)
[2016-09-06] MEDS: FLAGYL 500 MG/100 ML 500 MG/100 ML BAG IV SCH (06:19)
--- NOTE | 2016-09-06 06:57 | Progress Note ---
Assessment and Plan - Patient Problems (1) THIAGO (acute kidney injury) Current Visit: Yes Status: Acute Plan to address problem: Acute kidney Injury in the setting of volume depletion, Acites and bladder outlet obstruction. S/p Bustos catheter. Creatinine gradually improving. Continue IV fluids. (2) Ascites Current Visit: Yes Status: Acute Qualifiers: Ascites type: other type Qualified Code(s): R18.8 - Other ascites Plan to address problem: S/p paracentesis yesterday with removal of 5.8 L of fluid. IV albumin since the BP is low. (3) DM type 2 (diabetes mellitus, type 2) Current Visit: Yes Status: Acute Qualifiers: Diabetes mellitus complication status: D Diabetes mellitus complication detail: D Diabetic retinopathy severity: D Proliferative retinopathy type: P Diabetes mellitus macular edema: D Diabetes mellitus correction insulin use : D Laterality: L Chronic kidney disease stage: C Subjective Date of service: 09/06/16 Interval history: Patient is feeling better today. Objective - Vital Signs Vital signs: Vital Signs - 12hr 09/05/16 09/05/16 09/05/16 21:55 21:56 22:00 Temperature Pulse Rate 78 78 Pulse Rate [ Left Radial] Pulse Rate [ 74 Right Radial] Respiratory 18 Rate Blood Pressure 88/53 88/53 Blood Pressure [Left Arm] O2 Sat by Pulse 98 Oximetry 09/06/16 00:00 Temperature 98.2 F Pulse Rate Pulse Rate [ 76 Left Radial] Pulse Rate [ Right Radial] Respiratory 18 Rate Blood Pressure Blood Pressure 88/53 [Left Arm] O2 Sat by Pulse 95 Oximetry - General Appearance General appearance: well-developed, frail, other (no distress) EENT: PERRL, mucous membranes moist, hearing intact, vision intact Neck: no carotid bruit, supple Respiratory: Present: Clear to Ascultation Cardiology: regular, S1S2, no murmurs Gastrointestinal: normoactive bowel sounds, no tenderness, distended, other ( ascites) Integumentary: no rash, warm and dry Neurologic: no focal deficit, no asterixis, alert and oriented x3, CN 3-12 intact Musculoskeletal: other (no edema) Psychiatric: mood/affect appropriate, cooperative - Lab 09/04/16 09:04 09/06/16 07:55 Most recent lab results Calcium 8.8 mg/dL (8.4-10.2) 09/05/16 05:58 Magnesium 2.2 mg/dL (1.7-2.3) 09/05/16 05:58 Urine Creatinine 116.5 mg/dL (0.1-20.0) H 09/04/16 17:36 Urine Sodium 26 mEq/L 09/04/16 17:36
[2016-09-06 08:45] LABS: Calcium 8.2 mg/dL (8.4-10.2); Chloride 103.9 mmol/L (98-107)
--- NOTE | 2016-09-06 09:04 | Ultrasound Report ---
ULTRASOUND PARACENTESIS: HISTORY: Ascites. DESCRIPTION OF PROCEDURE: Informed consent was obtained. Sterile technique was utilized. 1% lidocaine for skin anesthesia. Using ultrasound guidance, a 5 [place] centesis needle was advanced into the left peritoneal space. There was spontaneous return of clear yellow fluid. 5.8 L of fluid was aspirated. Samples were sent to the laboratory for analysis per the ordering physician's request. IMPRESSION: Successful ultrasound-guided paracentesis.
[2016-09-06] MEDS: NOVOLOG SUB-Q SCH ×3 (09:15→17:48)
[2016-09-06] MEDS: DORZOLAMIDE HCL OU SCH ×2 (10:49→22:27)
[2016-09-06] MEDS: ALDACTONE PO SCH ×2 (10:50→22:30)
[2016-09-06] MEDS: INDERAL PO SCH ×2 (10:51→22:31)
--- NOTE | 2016-09-06 11:13 | Progress Note ---
Assessment and Plan Assessment and plan: Gross ascitis. Etiology unclear. Status post paracentesis yesterday with 6 L fluids removed. Specimen sent for analysis. GI Physician following.. Acute renal failure. Creatinine 1.7 today , improving. Diabetes mellitus type 2. Fingerstick glucose before every meal and at bedtime. She is on insulin sliding scale Hypertension. BP borderline low. Will monitor. Breast cancer s/p bilateral mastectomy DVT. Eliquis on hold because of recent paracentesis DVT prophylaxis with SCDs FULL CODE STATUS History Interval history: Patient with gross ascites had paracentesis yesterday, Less Abdominal distension, Less Abdominal discomfort, no fever Hospitalist Physical - Physical exam Narrative exam: Gen appearance: not in acute distress, HEENT: Normocephalic, atraumatic Neck : supple, no JVD Lungs: Lungs clear to auscultation bilaterally, no crackles or wheeze. Heart : S1 and S2 regular, no murmurs rubs or gallop, Abdomen: soft, non-tender, less distension, normal bowel sounds Extremities: No edema, clubbing, or cyanosis, Neuro :awake ,alert , oriented x 3, no focal signs Psych: calm - Constitutional Vitals: Temp Pulse Resp BP Pulse Ox 98 F 84 16 82/62 93 09/06/16 08:00 09/06/16 08:00 09/06/16 08:00 09/06/16 10:51 09/06/16 08:00 Results - Labs CBC & Chem 7: 09/04/16 09:04 09/06/16 07:55 Labs: Laboratory Last Values WBC 9.9 K/mm3 (4.5-11.0) 09/04/16 09:04 RBC 4.32 M/mm3 (3.65-5.03) 09/04/16 09:04 Hgb 12.0 gm/dl (10.1-14.3) 09/04/16 09:04 Hct 36.3 % (30.3-42.9) 09/04/16 09:04 MCV 84 fl (79-97) 09/04/16 09:04 MCH 28 pg (28-32) 09/04/16 09:04 MCHC 33 % (30-34) 09/04/16 09:04 RDW 15.5 % (13.2-15.2) H 09/04/16 09:04 Plt Count 314 K/mm3 (140-440) 09/04/16 09:04 Lymph % (Auto) 6.1 % (13.4-35.0) L 09/03/16 10:03 Davis % (Auto) 11.4 % (0.0-7.3) H 09/03/16 10:03 Eos % (Auto) 0.3 % (0.0-4.3) 09/03/16 10:03 Baso % (Auto) 0.5 % (0.0-1.8) 09/03/16 10:03 Lymph # 0.8 K/mm3 (1.2-5.4) L 09/03/16 10:03 Davis # 1.4 K/mm3 (0.0-0.8) H 09/03/16 10:03 Eos # 0.0 K/mm3 (0.0-0.4) 09/03/16 10:03 Baso # 0.1 K/mm3 (0.0-0.1) 09/03/16 10:03 Seg Neutrophils % 81.7 % (40.0-70.0) H 09/03/16 10:03 Seg Neutrophils # 10.0 K/mm3 (1.8-7.7) H 09/03/16 10:03 PT 15.8 Sec. (12.2-14.9) H 09/03/16 10:03 INR 1.27 (0.87-1.13) H 09/03/16 10:03 APTT 28.7 Sec. (24.2-36.6) 09/03/16 10:03 Sodium 141 mmol/L (137-145) 09/06/16 07:55 Potassium 4.0 mmol/L (3.6-5.0) 09/06/16 07:55 Chloride 103.9 mmol/L (98-107) 09/06/16 07:55 Carbon Dioxide 23 mmol/L (22-30) 09/06/16 07:55 Anion Gap 18 mmol/L 09/06/16 07:55 BUN 51 mg/dL (7-17) H 09/06/16 07:55 Creatinine 1.7 mg/dL (0.7-1.2) H 09/06/16 07:55 Estimated GFR 35 ml/min 09/06/16 07:55 BUN/Creatinine Ratio 30.00 % 09/06/16 07:55 Glucose 103 mg/dL (65-100) H 09/06/16 07:55 POC Glucose 115 (70-105) H 09/06/16 07:01 Calcium 8.2 mg/dL (8.4-10.2) L 09/06/16 07:55 Magnesium 2.2 mg/dL (1.7-2.3) 09/05/16 05:58 Total Bilirubin 0.4 mg/dL (0.1-1.2) 09/03/16 10:03 Direct Bilirubin < 0.2 mg/dL (0-0.2) 09/03/16 10:03 Indirect Bilirubin 0.2 mg/dL 09/03/16 10:03 AST 23 units/L (5-40) 09/03/16 10:03 ALT 7 units/L (7-56) 09/03/16 10:03 Alkaline Phosphatase 67 units/L (35-129) 09/03/16 10:03 Troponin T < 0.010 ng/mL (0.00-0.029) 09/03/16 10:03 NT-Pro-B Natriuret Pep 545.8 pg/mL (0-900) 09/03/16 12:47 Total Protein 6.7 g/dL (6.3-8.2) 09/03/16 10:03 Albumin 2.4 g/dL (3.9-5) L 09/03/16 10:03 Albumin/Globulin Ratio 0.6 % 09/03/16 10:03 Lipase 32 units/L (13-60) 09/03/16 10:03 Urine Color Yellow (Yellow) 09/03/16 11:12 Urine Turbidity Slightly-cloudy (Clear) 09/03/16 11:12 Urine pH 5.0 (5.0-7.0) 09/03/16 11:12 Ur Specific [place] 1.017 (1.003-1.030) 09/03/16 11:12 Urine Protein <15 mg/dl mg/dL (Negative) 09/03/16 11:12 Urine Glucose (UA) Neg mg/dL (Negative) 09/03/16 11:12 Urine Ketones Tr mg/dL (Negative) 09/03/16 11:12 Urine Blood Neg (Negative) 09/03/16 11:12 Urine Nitrite Neg (Negative) 09/03/16 11:12 Urine Bilirubin Neg (Negative) 09/03/16 11:12 Urine Urobilinogen < 2.0 mg/dL (<2.0) 09/03/16 11:12 Ur Leukocyte Esterase Neg (Negative) 09/03/16 11:12 Urine WBC (Auto) < 1.0 /HPF (0.0-6.0) 09/03/16 11:12 Urine RBC (Auto) < 1.0 /HPF (0.0-6.0) 09/03/16 11:12 Urine Bacteria (Auto) 1+ /HPF (Negative) 09/03/16 11:12 Urine Mucus Few /HPF 09/03/16 11:12 Urine Eosinophils 3 (None Seen) 09/04/16 17:36 Urine Creatinine 116.5 mg/dL (0.1-20.0) H 09/04/16 17:36 Urine Sodium 26 mEq/L 09/04/16 17:36 Fluid Type Paracentesis 09/05/16 16:30 Fluid Color Yellow 09/05/16 16:30 Fluid Appearance Cloudy 09/05/16 16:30 Fluid WBC 248 /mm3 09/05/16 16:30 Fluid RBC 708 /mm3 09/05/16 16:30 Fluid Diff Comment 09/05/16 16:30 Fluid Seg Neutrophils 37.0 % 09/05/16 16:30 Fluid Lymphocytes 40.0 % 09/05/16 16:30 Fluid Reactive Lymphs 0 % 09/05/16 16:30 Fluid Monocytes 22.0 % 09/05/16 16:30 Fluid Eosinophils 0 % 09/05/16 16:30 Fluid Basophils 1.0 % 09/05/16 16:30 Fluid Total Protein 4.1 (15.0-45.0) L 09/05/16 16:30 Fluid Albumin 2.2 g/dL 09/05/16 16:30 Fluid LDH 699 09/05/16 16:30 Fluid Triglycerides 37 09/05/16 16:30
[2016-09-06] MEDS: NACL 0.9% 1000 ML 1,000 ML IV SCH (15:52)
[2016-09-06] MEDS: ALBURX 25% (ALBUMIN) IV SCH ×2 (15:55→22:34)
--- NOTE | 2016-09-06 16:11 | Gastroenterology Progress Note ---
Assessment and Plan GI: ascites s/p paracenthesis unclear etiology - SAAG <1.1 so not consistent with liver or cardiac source (serum labs were from 2-3 days ago) - awaiting cytology and other labs - diuretics per renal team - no obvious liver disease at this time - will follow for now Subjective Date of service: 09/06/16 Interval history: - reports no specific GI complaints overnight Objective - Constitutional Vitals: Temp Pulse Resp BP Pulse Ox 98 F 84 16 82/62 93 09/06/16 08:00 09/06/16 08:00 09/06/16 08:00 09/06/16 10:51 09/06/16 08:00 General appearance: no acute distress - Respiratory Respiratory: bilateral: CTA - Cardiovascular Rhythm: regular Heart Sounds: Present: S1 & S2 - Gastrointestinal General gastrointestinal: Present: soft, non-tender - Labs CBC & Chem 7: 09/04/16 09:04 09/06/16 07:55 Labs: Laboratory Results - last 24 hr 09/05/16 09/05/16 09/05/16 16:30 17:14 22:00 Sodium Potassium Chloride Carbon Dioxide Anion Gap BUN Creatinine Estimated GFR BUN/Creatinine Ratio Glucose POC Glucose 91 145 H Calcium Fluid Type Paracentesis Fluid Color Yellow Fluid Appearance Cloudy Fluid WBC 248 Fluid RBC 708 Fluid Diff Comment Fluid Seg Neutrophils 37.0 Fluid Lymphocytes 40.0 Fluid Reactive Lymphs 0 Fluid Monocytes 22.0 Fluid Eosinophils 0 Fluid Basophils 1.0 Fluid Total Protein 4.1 L Fluid Albumin 2.2 Fluid LDH 699 Fluid Triglycerides 37 09/06/16 09/06/16 09/06/16 07:01 07:55 11:57 Sodium 141 Potassium 4.0 Chloride 103.9 Carbon Dioxide 23 Anion Gap 18 BUN 51 H Creatinine 1.7 H Estimated GFR 35 BUN/Creatinine Ratio 30.00 Glucose 103 H POC Glucose 115 H 222 H Calcium 8.2 L Fluid Type Fluid Color Fluid Appearance Fluid WBC Fluid RBC Fluid Diff Comment Fluid Seg Neutrophils Fluid Lymphocytes Fluid Reactive Lymphs Fluid Monocytes Fluid Eosinophils Fluid Basophils Fluid Total Protein Fluid Albumin Fluid LDH Fluid Triglycerides 09/06/16 15:44 Sodium Potassium Chloride Carbon Dioxide Anion Gap BUN Creatinine Estimated GFR BUN/Creatinine Ratio Glucose POC Glucose 97 Calcium Fluid Type Fluid Color Fluid Appearance Fluid WBC Fluid RBC Fluid Diff Comment Fluid Seg Neutrophils Fluid Lymphocytes Fluid Reactive Lymphs Fluid Monocytes Fluid Eosinophils Fluid Basophils Fluid Total Protein Fluid Albumin Fluid LDH Fluid Triglycerides
[2016-09-06] MEDS: XALATAN 0.005% OU SCH (18:57)
[2016-09-07] MEDS: NOVOLOG SUB-Q SCH ×3 (00:56→12:44)
[2016-09-07] MEDS: HEPARIN SUB-Q SCH (05:37)
[2016-09-07 06:27] LABS: Hematocrit 34.4 % (30.3-42.9); Hemoglobin 11.1 gm/dl (10.1-14.3); Mean Corpuscular HGB Conc 32 % (30-34); Mean Corpuscular Hemoglobin 28 pg (28-32); Mean Corpuscular Volume 85 fl (79-97); Platelet Count 282 K/mm3 (140-440); Red Blood Count 4.04 M/mm3 (3.65-5.03); Red Cell Distribution Width 15.7 % (13.2-15.2); White Blood Count 7.4 K/mm3 (4.5-11.0)
[2016-09-07 06:49] LABS: Albumin 2.9 g/dL (3.9-5); Albumin/Globulin Ratio 1.2 %; Alkaline Phosphatase 46 units/L (35-129); Anion Gap 15 mmol/L; BUN/Creatinine Ratio 31.42; Bilirubin,Total 0.5 mg/dL (0.1-1.2); Blood Urea Nitrogen 44 mg/dL (7-17); Calcium 8.4 mg/dL (8.4-10.2); Carbon Dioxide 24 mmol/L (22-30); Chloride 104.9 mmol/L (98-107); Glucose 93 mg/dL (65-100); Potassium 3.5 mmol/L (3.6-5.0); Sodium 140 mmol/L (137-145); Total Protein 5.3 g/dL (6.3-8.2)
[2016-09-07 06:52] LABS: Alanine Aminotransferase < 5 units/L (7-56)
--- NOTE | 2016-09-07 07:05 | Progress Note ---
Assessment and Plan - Patient Problems (1) THIAGO (acute kidney injury) Current Visit: Yes Status: Acute Plan to address problem: Acute kidney Injury in the setting of volume depletion, Acites and bladder outlet obstruction. Creatinine continues to improve. (2) Ascites Current Visit: Yes Status: Acute Qualifiers: Ascites type: other type Qualified Code(s): R18.8 - Other ascites Plan to address problem: S/p paracentesis with removal of 5.8 L of fluid. 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 Objective - Vital Signs Vital signs: Vital Signs - 12hr 09/06/16 09/06/16 09/06/16 22:00 22:30 22:31 Temperature Pulse Rate 68 68 Pulse Rate [ Left Radial] Pulse Rate [ 88 Right Radial] Respiratory 18 Rate Blood Pressure 102/64 102/64 Blood Pressure [Left Arm] O2 Sat by Pulse 97 Oximetry 09/06/16 09/06/16 09/06/16 22:35 22:50 23:26 Temperature 97.6 F 97.6 F 98.0 F Pulse Rate 68 88 86 Pulse Rate [ Left Radial] Pulse Rate [ Right Radial] Respiratory 18 18 18 Rate Blood Pressure 102/64 94/64 92/60 Blood Pressure [Left Arm] O2 Sat by Pulse Oximetry 09/07/16 00:00 Temperature 97.4 F L Pulse Rate Pulse Rate [ 86 Left Radial] Pulse Rate [ Right Radial] Respiratory 16 Rate Blood Pressure Blood Pressure 92/60 [Left Arm] O2 Sat by Pulse 95 Oximetry - General Appearance General appearance: well-developed, frail, other (no distress) EENT: PERRL, mucous membranes moist, hearing intact, vision intact Neck: supple Respiratory: Present: Clear to Ascultation Cardiology: regular, S1S2, no murmurs Gastrointestinal: normoactive bowel sounds, distended, other (ascites noted) Integumentary: no rash, warm and dry Neurologic: no focal deficit, no asterixis, CN 3-12 intact Musculoskeletal: other (1+ edema of both LEs noted) Psychiatric: mood/affect appropriate, cooperative - Lab 09/07/16 05:47 09/07/16 05:47 Most recent lab results Calcium 8.4 mg/dL (8.4-10.2) 09/07/16 05:47 Magnesium 2.2 mg/dL (1.7-2.3) 09/05/16 05:58 Urine Creatinine 116.5 mg/dL (0.1-20.0) H 09/04/16 17:36 Urine Sodium 26 mEq/L 09/04/16 17:36
[2016-09-07] MEDS: NACL 0.9% 1000 ML 1,000 ML IV SCH (08:15)
[2016-09-07] MEDS ORDERED: LEVAQUIN 500MG/100ML 500 MG/100 ML BAG IV SCH (10:00)
--- NOTE | 2016-09-07 10:41 | Discharge Summary ---
Providers - Providers Date of Admission: 09/03/16 15:11 Date of discharge: 09/07/16 Attending physician: ADALBERTO FERRER 09/03/16 17:53 Physical Therapy Evaluation and Treat [CONS] Routine Comment: Reason For Exam: eval and treat, patient had recent fall 09/03/16 17:54 Consult to Dietitian/Nutrition [CONS] Routine Physician Instructions: Reason For Exam: Reason for Consult: Diet education 09/03/16 18:06 Consult to Interventional Radiology [CONS] Routine Consulting Provider: GORDON THOMPSON Reason For Exam: new onset Ascites, on Eliquis for BLE DVT Place consult to:: Raeann CORRALES Notified:: answering services Phone number called:: [phone] Was contact made?: Yes If yes, spoke with:: Fanny Time called:: 18:23 Comment:: need cell count, cytology, gram stain, culture, total protein and albumin 09/03/16 18:07 Consult to Physician [CONS] Routine Consulting Provider: SREEDHAR HARRELL Reason For Exam: new onset ascites Place consult to:: Miah Harrell MD Notified:: answering services Phone number called:: [phone] Was contact made?: Yes If yes, spoke with:: Misa Time called:: 18:30 Comment:: Christine notified 09/04/16 10:39 Consult to Physician [CONS] Routine Consulting Provider: THIERNO CORRALES I Reason For Exam: acute kidney injury Place consult to:: Dr. Corrales Notified:: yes Phone number called:: [phone] Was contact made?: Yes If yes, spoke with:: Maxine (answering service) Time called:: 12:15 Primary care physician: IC DESIGNER [employer]OM Hospitalization Condition: Fair Hospital course: Patient is 81 yo with breast cancer, recent DVT right lower extremity. She presented with abdominal pain. Was founded to have ascitis. She was admitted and GI was consulted. Also she had acute kidney injury with Creatinine of 2.0, therefore Nephrology was consulted. Ultrasound guided paracentesis was done and 5.8 liters fluid was removed ,and sample sent to lab. Her Creatinine improved slowly. On 09/07/16, his Creatnine was down to 1.4, and she was discharged home. Pathology report from ascitic fluid was still pending at time of discharge. Total time spent on discharge, 35 mins. 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 Heart : S1 and S2 regular, no murmurs rubs or gallop, Abdomen: soft, non-tender, less distension, normal bowel sounds Extremities: No edema, clubbing, or cyanosis, Neuro :awake ,alert , oriented x 3, no focal signs Psych: calm - Constitutional Vitals: Temp Pulse Resp BP Pulse Ox 97.9 F 100 H 16 100/72 97 09/07/16 07:20 09/07/16 07:20 09/07/16 07:20 09/07/16 07:20 09/07/16 07:20 Plan Activity: no restrictions Diet: low fat, low cholesterol, low salt, diabetic Additional Instructions: 1.Follow up with PCP in 3-5 days. 2.Follow up with Dr. Miah Harrell, GI in 1 week. 3.Follow up with Dr. Welch, Nephrology in 1 week. 4.Repeat BMP in 1 week to be followed by Nephrology, Dr. Welch Follow up with: PRIMARY CARE, [Primary Care Provider] - 3-5 Days Prescriptions: Propranolol [Inderal] 80 mg PO BID #60 tablet
[2016-09-07] MEDS: ALDACTONE PO SCH (10:55)
[2016-09-07] MEDS: DORZOLAMIDE HCL OU SCH (10:55)
[2016-09-07] MEDS: INDERAL PO SCH (10:55)
[2016-09-07 13:17] VITALS: BP 103/72
[2016-09-07] MEDS ORDERED: FLAGYL 500 MG/100 ML 500 MG/100 ML BAG IV SCH (14:00)
[2016-09-08] MEDS ORDERED: FLAGYL PO SCH (08:00)
[2016-09-08] MEDS ORDERED: LEVAQUIN PO SCH (10:00)
--- NOTE | 2016-09-12 10:04 | Query- General ---
Parisa Mejia___Chintan Date:___09/12/16 Jacker Feeder/CDS:____Reinaldo / Monika Phone#:___[phone] Exercise your independent professional judgment when responding to this query. Questions asked do not imply a particular answer is desired or expected. We greatly appreciate your clarification on this issue. Clinical Documentation States: 81 year old female was admitted on 09/03/16. The patients chief complaint was swollen abdomen. The H&P states " Severe progressively worse constant abdominal swelling for last week. New onset ascites " The gastroenterology progress note says GI: ascites s/p paracentesis unclear etiology. It also states " SAAG <1.1 so not consistent with liver or cardiac source. No obvious liver disease at this time " The discharge summary dictates " Ascites, acute. Ascites type: other type " Clinical Findings Show (include reference to source document): SAAG < 1.1 Fluid type : Paracentesis Fluid color: yellow Fluid appearance: cloudy Fluid WBC: 248 Fluid RBC: 708 Fluid total protein: 4.1 L Given the above clinical scenario can you please provide an appropriate diagnosis based on your knowledge of the patient: Please clarify the etiology of Ascities: PHYSICIAN RESPONSE: [ ] Portal hypertension [ ] Post obstructive [x ] Other (please specify) _Ascitis etiology unclear. GI to follow as outpatient [ ] Clinically undeterminable [ ] Not applicable Present on Admission: [x] Yes (Y) [ ] Clinically undeterminable (W) [ ]No(N) Please also document response in your Progress Notes and/or Discharge Summary and indicate if the condition was present on admission. MTDD
== END 2016-09-07 13:35 | disposition home or self-care (01) | DRG 682 ==
LOC: ED 08:46 → 3A 15:11
PROVIDERS: ADMIT Internal Medicine; ATTEND Internal Medicine
PROC: 0W9G3ZX Drainage of Peritoneal Cavity, Percutaneous Approach, Diagnostic (ICD-10-PCS; principal; 2016-09-05)
DX: N17.0 Acute kidney failure with tubular necrosis (principal); E43 Unspecified severe protein-calorie malnutrition; R18.8 Other ascites; Z86.718 Personal history of other venous thrombosis and embolism; Z79.01 Long term (current) use of anticoagulants; I10 Essential (primary) hypertension; Z85.3 Personal history of malignant neoplasm of breast; E11.9 Type 2 diabetes mellitus without complications; Z90.13 Acquired absence of bilateral breasts and nipples; Z90.710 Acquired absence of both cervix and uterus; Z83.3 Family history of diabetes mellitus; Z82.49 Family history of ischemic heart disease and other diseases of the circulatory system; Z88.1 Allergy status to other antibiotic agents; Z68.26 Body mass index [BMI] 26.0-26.9, adult; E78.5 Hyperlipidemia, unspecified
CPT/HCPCS: 36415; 49083; 71020; 74020; 74176; 76770; 80048; 80053; 80074; 81001; 82040; 82570; 82728; 82962; 83605; 83690; 83735; 83880; 84160; 84300; 84443; 84478; 84484; 85025; 85027; 85610; 85730; 86038; 88112; 88305; 88341; 88342; 89050; 89051; 93005; 93010; 96365; 96375; G8978-GP; G8979-GP; J1644; J1815; J1940; J1956; J7030; J7040; P9047

== ENCOUNTER 2016-09-17 08:31 | Inpatient (IN) | payer MEDICARE ==
[2016-09-17 09:50] LABS: Basophils % (Auto) 0.3 % (0.0-1.8); Eosinophils % (Auto) 0.3 % (0.0-4.3); Hematocrit 41.6 % (30.3-42.9); Hemoglobin 13.1 gm/dl (10.1-14.3); Mean Corpuscular HGB Conc 32 % (30-34); Mean Corpuscular Hemoglobin 27 pg (28-32); Mean Corpuscular Volume 85 fl (79-97); Platelet Count 326 K/mm3 (140-440); Red Blood Count 4.88 M/mm3 (3.65-5.03); Red Cell Distribution Width 16.9 % (13.2-15.2); White Blood Count 12.1 K/mm3 (4.5-11.0)
[2016-09-17 09:52] LABS: INR 1.18 (0.87-1.13)
[2016-09-17 09:53] LABS: Partial Thromboplastin Time 29.4 Sec. (24.2-36.6)
[2016-09-17 09:54] LABS: Alanine Aminotransferase 7 units/L (7-56); Albumin 2.5 g/dL (3.9-5); Albumin/Globulin Ratio 0.7 %; Alkaline Phosphatase 83 units/L (35-129); Bilirubin,Total 0.4 mg/dL (0.1-1.2)
[2016-09-17 09:55] LABS: Albumin 2.5 g/dL (3.9-5); Albumin/Globulin Ratio 0.7 %; BUN/Creatinine Ratio 29.37; Bilirubin,Total 0.3 mg/dL (0.1-1.2); Calcium 8.7 mg/dL (8.4-10.2); Chloride 100.7 mmol/L (98-107); Magnesium 2.3 mg/dL (1.7-2.3); Potassium 4.7 mmol/L (3.6-5.0)
[2016-09-17 10:00] LABS: Bilirubin,Direct < 0.2 mg/dL (0-0.2)
[2016-09-17] MEDS ORDERED: D50W (25GM) IV ONE ×3 (10:12→11:00)
[2016-09-17 10:18] LABS: Urine Drugs of Abuse Note Disclamer
[2016-09-17 10:37] LABS: Bacteria,Urine 2+ /HPF (Negative); Bilirubin,Urine NEG (Negative); Blood,Urine NEG (Negative); Ketones,Urine NEG (Negative); Leukocyte Esterase,Urine NEG (Negative); Mucus,Urine 3+ /HPF; Nitrite,Urine NEG (Negative); Protein,Urine <15 mg/dL mg/dL (Negative); Urobilinogen,Urine < 2.0 mg/dL (<2.0)
--- NOTE | 2016-09-17 11:10 | Emergency Department Report ---
HPI - General Chief Complaint: Altered Mental Status Time Seen by Provider: 09/17/16 10:47 - HPI HPI: Chief complaint: Hypoglycemia altered mental status HPI: Patient is an 81-year-old female with a history of bilateral meniscectomies the last 2008 and a recent admission for ascites. Patient appears to have a malignant ascites and his and referred to a cancer specialist. Patient has not been eating well despite taking medications to help her appetite. Patient is able to drink some fluids and has been having urinary output but no bowel movement for the last 2 days. Patient's ascites is increasing once again. Patient has history of atrial fibrillation and a DVT to her right lower extremity and takes Eliquis for this. Patient has a history of insulin-dependent diabetes that is not taking any medication for this as her sugars have been low. EMS was called to the patient's home this morning when her daughter was unable to wake her up and she had an Accu-Chek of 29. Patient was given an amp of D50 and her sugar went up to 259 however on arrival here her blood sugar was 94 and she was given some breakfast. Mode of arrival: EMS Source: Patient old chart family member Began: Sometime during the night Duration: Unable to say exactly Context: See above Quality: Denies pain Severity: 0 out of 10 Improved with: IV glucose Worsened with: Nothing Associated signs and symptoms: See above ED Past Medical Hx - Past Medical History Previous Medical History?: Yes Hx Hypertension: Yes Hx Diabetes: Yes Hx Deep Vein Thrombosis: Yes (right lower extremity) Hx GERD: Yes Additional medical history: B lower ext DVT's, afib, malignant ascites - Surgical History Past Surgical History?: Yes Hx Breast Surgery: Yes (bilateral mastectomy) Additional Surgical History: right foot surgery. hysterectomy - Social History Smoking Status: Never Smoker Substance Use Type: None - Medications Home Medications: Home Medications Medication Instructions Recorded Confirmed Last Taken Type Apixaban [Eliquis] 5 mg PO BID 09/03/16 09/17/16 09/02/16 History Aspirin 81 mg PO DAILY 09/03/16 09/17/16 Unknown History AtorvaSTATin [Lipitor] 40 mg PO DAILY 09/03/16 09/17/16 Unknown History Dorzolamide HCl 1 drop OU BID 09/03/16 09/17/16 Unknown History Glimepiride [Amaryl] 4 mg PO BID 09/03/16 09/17/16 Unknown History Insulin Glargine [Lantus VIAL] 6 unit SUB-Q QHS 09/03/16 09/17/16 Unknown History LORazepam [Ativan] 0.5 mg PO BID PRN 09/03/16 09/17/16 Unknown History Travoprost (Benzalkonium) 1 drop OU HS 09/03/16 09/17/16 Unknown History [Travoprost 0.004% Eye Drop] Propranolol [Inderal] 80 mg PO BID #60 tablet 09/07/16 09/17/16 Unknown Rx Cholecalciferol (Vitamin D3) 5,000 unit PO QWEEK 09/17/16 09/17/16 Unknown History [Vitamin D3] Diclofenac Sodium 75 mg PO BID 09/17/16 09/17/16 Unknown History HYDROcodone/APAP 7.5-325 [[place] 1 each PO Q6HR PRN 09/17/16 09/17/16 Unknown History 7.5/325] Omeprazole Magnesium [PriLOSEC Otc] 20 mg PO QDAY 09/17/16 09/17/16 Unknown History ED Review of Systems ROS: Stated complaint: ALTERED MENTAL STATUS Other details as noted in HPI ROS Constitutional: No fever , weight loss and generalized malaise ENT: No uri symptoms Cardiovascular: No chest pain Respiratory: No sob. Slight cough in the morning GI: Nausea, decreased appetite, no bowel movement in 2 days, ascites has returned : No dysuria frequency or urgency, Skin: No rash Neuro: No focal weakness or numbness Psych: depression David/lymph: Tonic right lower extremity edema Physical Exam - Physical Exam Vital Signs: Vital Signs 09/17/16 09/17/16 09/17/16 08:42 08:50 08:54 Temperature Pulse Rate 84 80 Respiratory 19 22 Rate Blood Pressure 140/96 140/96 O2 Sat by Pulse 95 100 Oximetry 09/17/16 09/17/16 09/17/16 09:00 09:10 09:20 Temperature Pulse Rate 82 79 83 Respiratory 22 26 H 18 Rate Blood Pressure 125/91 125/91 125/91 O2 Sat by Pulse 94 94 95 Oximetry 09/17/16 09/17/16 09/17/16 09:30 09:40 09:50 Temperature Pulse Rate 80 83 88 Respiratory 22 21 16 Rate Blood Pressure 125/91 125/91 125/91 O2 Sat by Pulse 92 97 100 Oximetry 09/17/16 09/17/16 09/17/16 10:00 10:06 10:10 Temperature 93.6 F L Pulse Rate 81 84 Respiratory 17 24 Rate Blood Pressure 106/81 106/81 O2 Sat by Pulse 84 Oximetry Physical Exam: GENERAL: The patient is a thin elderly -Citizen Of The [place] female in no acute distress HEENT: Normocephalic. Atraumatic. Extraocular motions are intact. Patient has moist mucous membranes. NECK: Supple. No meningitic signs are noted. There is no adenopathy noted. CHEST/LUNGS: Clear to auscultation. There is no respiratory distress noted. HEART/CARDIOVASCULAR: Regular. There is no tachycardia. There is no gallop rub or murmur. ABDOMEN: Abdomen is soft, nontender. Patient has normal bowel sounds. Abdomen is distended with ascites. SKIN: There is no rash. There is right 2+ pedal edema. There is no diaphoresis. NEURO: The patient is awake, alert, and oriented. The patient is cooperative. The patient has no focal neurologic deficits. The patient has normal speech. MUSCULOSKELETAL: There is no tenderness or deformity. There is no evidence of acute injury. ED Course Vital Signs 09/17/16 09/17/16 09/17/16 08:42 08:50 08:54 Temperature Pulse Rate 84 80 Respiratory 19 22 Rate Blood Pressure 140/96 140/96 O2 Sat by Pulse 95 100 Oximetry 09/17/16 09/17/16 09/17/16 09:00 09:10 09:20 Temperature Pulse Rate 82 79 83 Respiratory 22 26 H 18 Rate Blood Pressure 125/91 125/91 125/91 O2 Sat by Pulse 94 94 95 Oximetry 09/17/16 09/17/16 09/17/16 09:30 09:40 09:50 Temperature Pulse Rate 80 83 88 Respiratory 22 21 16 Rate Blood Pressure 125/91 125/91 125/91 O2 Sat by Pulse 92 97 100 Oximetry 09/17/16 09/17/16 09/17/16 10:00 10:06 10:10 Temperature 93.6 F L Pulse Rate 81 84 Respiratory 17 24 Rate Blood Pressure 106/81 106/81 O2 Sat by Pulse 84 Oximetry ED Medical Decision Making - Lab Data Result diagrams: 09/17/16 09:15 02/18/17 09:15 Laboratory Tests 09/17/16 09/17/16 09/17/16 09:15 09:15 09:15 PT 14.9 INR 1.18 H APTT 29.4 Ammonia Total Protein 6.0 L Albumin 2.5 L TSH 2.400 Ur Specific [place] Urine Protein Urine Glucose (UA) Urine Urobilinogen Ur Leukocyte Esterase Urine WBC (Auto) Urine RBC (Auto) U Epithel Cells (Auto) Urine Bacteria (Auto) 09/17/16 09/17/16 09:25 10:07 PT INR APTT Ammonia 21.0 L Total Protein Albumin TSH Ur Specific [place] 1.020 Urine Protein <15 mg/dl Urine Glucose (UA) 50 Urine Urobilinogen < 2.0 Ur Leukocyte Esterase Neg Urine WBC (Auto) 2.0 Urine RBC (Auto) 2.0 U Epithel Cells (Auto) 2.0 Urine Bacteria (Auto) 2+ Critical care attestation.: If time is entered above; I have spent that time in minutes in the direct care of this critically ill patient, excluding procedure time. ED Disposition Clinical Impression: Hypoglycemia, unspecified, Renal insufficiency Ascites Qualifiers: Ascites type: malignant Qualified Code(s): R18.0 - Malignant ascites Disposition: OP ADMITTED IP TO THIS HOSP Is pt being admited?: Yes Does the pt Need Aspirin: No Condition: Fair Referrals: PRIMARY CARE, [Primary Care Provider] - 3-5 Days Time of Disposition: 11:19 (admit to the hospitalist)
--- NOTE | 2016-09-17 11:58 | XRay Report ---
Chest 2 views: Compared to 09/03/16. History: Shortness of breath. Findings: Cardiomegaly. Trachea midline. Bilateral large pleural effusion. Underlying lung cannot be evaluated. Mild pulmonary venous congestion. Impression: Cardiomegaly bilateral pleural effusion.
[2016-09-17] MEDS ORDERED: MORPHINE IV PRN (12:15)
[2016-09-17] MEDS ORDERED: MILK OF MAGNESIA PO PRN (12:15)
[2016-09-17] MEDS ORDERED: TYLENOL PO PRN (12:15)
[2016-09-17] MEDS ORDERED: DULCOLAX PR PRN (12:15)
[2016-09-17] MEDS ORDERED: ATIVAN PO PRN (12:27)
[2016-09-17] MEDS ORDERED: NORCO 7.5/325 PO PRN (12:27)
--- NOTE | 2016-09-17 12:46 | History and Physical Report ---
History of Present Illness Date of examination: 09/17/16 Date of admission: 09-17-16 Chief complaint: sob abdominal pain History of present illness: Mrs. Tejeda is a 81-year-old female with history of diabetes, breast cancer presents to the ED after being found unresponsive at the home. Ambulates arrival patient had Accu-Chek of 29. Her symptoms resolved somewhat after amp of D50. Patient Accu-Chek went back up to 250 and then had another episode of hypoglycemia. Patient's symptoms have been going on for approximately 1-1/2 week. Patient was recently admitted for malignant ascites. Since that time patient abdomen has been getting bigger and bigger in she's been losing her appetite. Patient's has been hypoglycemic unable to eat. Unable to sustain adequate nutrition to keep her sugars up. This is consistent with the amount of fluid that is built up around her abdomen. Patient at this time states abdominal pain is tolerable. Describes being more tense than sharp pain. Patient states she just doesn't feel like eating. Laying in bed at daughter at bedside. All concerns and questions answered to family's satisfaction. Daughter states patient abdomen started to swell several days after she was discharged for the last paracentesis. Patient scheduled to see [place] [facility] in 2 weeks. Patient denies chest pain denies diarrhea. Patient has not had a bowel movement in 2 days. Past History Past Medical History: anemia, diabetes, GERD. denies: acute [place], atrial fib, arrhythmia, arthritis, CAD, cancer, COPD, dialysis, DVT, ESRD, heart failure, hepatitis, HIV/AIDS, hyperthyroidism, hypertension, hyperlipidemia, hypothyroidism, liver disease, migraines, pulmonary embolism, renal failure, sarcoidosis Social history: single, lives with family, full code. denies: smoking, alcohol abuse, prescription drug abuse, IV drug use Family history: no significant family history Medications and Allergies Allergies Allergy/AdvReac Type Severity Reaction Status Date / Time ampicillin Allergy Rash Verified 01/30/15 08:13 Home Medications Medication Instructions Recorded Confirmed Last Taken Type Apixaban [Eliquis] 5 mg PO BID 09/03/16 09/17/16 09/02/16 History Aspirin 81 mg PO DAILY 09/03/16 09/17/16 Unknown History AtorvaSTATin [Lipitor] 40 mg PO DAILY 09/03/16 09/17/16 Unknown History Dorzolamide HCl 1 drop OU BID 09/03/16 09/17/16 Unknown History Glimepiride [Amaryl] 4 mg PO BID 09/03/16 09/17/16 Unknown History Insulin Glargine [Lantus VIAL] 6 unit SUB-Q QHS 09/03/16 09/17/16 Unknown History LORazepam [Ativan] 0.5 mg PO BID PRN 09/03/16 09/17/16 Unknown History Travoprost (Benzalkonium) 1 drop OU HS 09/03/16 09/17/16 Unknown History [Travoprost 0.004% Eye Drop] Propranolol [Inderal] 80 mg PO BID #60 tablet 09/07/16 09/17/16 Unknown Rx Cholecalciferol (Vitamin D3) 5,000 unit PO QWEEK 09/17/16 09/17/16 Unknown History [Vitamin D3] Diclofenac Sodium 75 mg PO BID 09/17/16 09/17/16 Unknown History HYDROcodone/APAP 7.5-325 [[place] 1 each PO Q6HR PRN 09/17/16 09/17/16 Unknown History 7.5/325] Omeprazole Magnesium [PriLOSEC Otc] 20 mg PO QDAY 09/17/16 09/17/16 Unknown History Active Meds: Active Medications Acetaminophen (Tylenol) 650 mg PO Q4H PRN PRN Reason: Pain MILD(1-3)/Fever >100.5/FLORES Acetaminophen/Hydrocodone Bitart ([place] 7.5/325) 1 each PO Q6HR PRN PRN Reason: Pain Albuterol/Ipratropium (Duoneb 0.5 Mg-3 Mg/3 Ml Soln) 1 ampul IH Q6HRT LON Apixaban (Eliquis) 5 mg PO BID [facility] Aspirin (Baby Aspirin) 81 mg PO DAILY LON Atorvastatin Calcium (Lipitor) 40 mg PO DAILY LON Bisacodyl (Dulcolax) [address] QDAY PRN PRN Reason: Constipation unrelieved by MOM Enoxaparin Sodium (Lovenox) 40 mg SUB-Q QDAY LON Glimepiride (Amaryl) 4 mg PO BID LON Dextrose/Sodium Chloride (D5ns) 1,000 mls @ 42 mls/hr IV DIRECT LON Insulin Detemir (Levemir) 6 units SUB-Q QHS LON Lorazepam (Ativan) 0.5 mg PO BID PRN PRN Reason: Anxiety Magnesium Hydroxide (Milk Of Magnesia) 30 ml PO Q4H PRN PRN Reason: Constipation Miscellaneous Medication (Travoprost (Benzalkonium) [Travoprost 0.004% Eye Drop] ) 1 drop OU HS [facility] Stop: 09/19/16 23:59 Morphine Sulfate (Morphine) 2 mg IV Q4H PRN PRN Reason: Pain, Moderate (4-6) Ondansetron HCl (Zofran) 4 mg IV Q8H PRN PRN Reason: N/V unrelieved by Reglan Propranolol HCl (Inderal) 80 mg PO BID [facility] Review of Systems Constitutional: weight loss, anorexia, fatigue, weakness, malaise, lethargy, poor appetite, no weight gain, no fever, no chills, no sweats, no night sweats, no chronic headaches, no daytime sleepiness, no chronic pain Ears, nose, mouth and throat: no ear pain, no tinnitis, no nasal congestion, no nasal discharge, no bleeding gums, no dental pain, no mouth pain, no dysphagia, no sore throat, no post-nasal drip, no headache, no vertigo, no pain front of neck, no neck fullness/pressure, no neck lump Breasts: other (mastectomy) Cardiovascular: no chest pain, no orthopnea, no rapid/irregular heart beat, no edema, no syncope, no shortness of breath, no paroxysmal nocturnal dyspnea, no claudication, no leg edema Respiratory: no hemoptysis, no dyspnea on exertion, no pleurisy, no pain, no pain on inspiration Gastrointestinal: abdominal pain, nausea, constipation, change in bowel habits, loss of appetite, early satiety, heartburn, dyspepsia/bloating, early satiety, no vomiting, no diarrhea, no hematemesis, no coffee ground emesis, no BRBPR, no melena, no hematochezia, no indigestion, no belching, no excessive gas, no jaundice, no lactose intolerance Genitourinary Female: no dysmenorrhea, no urinary frequency, no post void dribbling, no incomplete emptying Rectal: no pain, no incontinence, no bleeding, no itching, no hemorrhoids Musculoskeletal: no neck stiffness, no neck pain, no shooting arm pain, no low back pain, no hot joints, no muscle cramps, no prior amputations, no arthritis Integumentary: no deferred, no pruritis, no redness, no sores, no wounds, no jaundice, no boils, no growths, no lesions, no darkening of skin, no depigmentation, no dryness, no color changes, no striae, no foot/leg ulcers, no onychomycosis Neurological: confusion, memory loss, no head injury, no transient paralysis, no paralysis, no parathesias, no numbness, no tingling, no tremors, no motor disturbance, no loss of vision, no hearing difficulties, no burning pain Psychiatric: memory loss, change in sleep habits, change in appetite, no anxiety , no sleep disturbances, no insomnia, no hypersomnia, no change in libido, no suicidal ideation, no disorientation, no hallucinations, no hopelessness, no anhedonia, no difficulties concentrating, no confusion Endocrine: no cold intolerance, no polyphagia, no polyuria, no flushing, no weight change, no deepening of the voice, no thyroid mass, no palpatations, no high blood sugars, no low blood sugars, no recent glucocorticoid use Hematologic/Lymphatic: no easy bleeding, no lymphadenopathy Allergic/Immunologic: no urticaria, no persistent infections, no seasonal allergies Exam - Constitutional Vitals: Temp Pulse Resp BP Pulse Ox 93.6 F L 84 24 106/81 84 09/17/16 10:06 09/17/16 10:10 09/17/16 10:10 09/17/16 10:10 09/17/16 10:10 General appearance: Present: mild distress - EENT Eyes: Present: PERRL, EOM intact ENT: hearing intact, clear oral mucosa - Neck Neck: Present: supple, normal ROM - Respiratory Respiratory: bilateral: diminished - Cardiovascular Rhythm: regular Heart Sounds: Present: S1 & S2 - Extremities Extremities: no ischemia, pulses intact Extremity abnormal: edema, other Peripheral Pulses: within normal limits - Abdominal General gastrointestinal: Present: tender, distended, hypoactive bowel sounds, other (generalized weakness) Localized gastrointestinal: mass: epigastric periumbilical (periumbilical hernia ) Female genitourinary: Present: normal - Integumentary Integumentary: Present: clear, warm, dry - Musculoskeletal Musculoskeletal: generalized weakness - Psychiatric Psychiatric: appropriate mood/affect, cooperative - Neurologic Neurologic: CNII-XII intact Results - Labs CBC & Chem 7: 09/17/16 09:15 09/17/16 09:15 Labs: Laboratory Last Values WBC 12.1 K/mm3 (4.5-11.0) H 09/17/16 09:15 RBC 4.88 M/mm3 (3.65-5.03) 09/17/16 09:15 Hgb 13.1 gm/dl (10.1-14.3) 09/17/16 09:15 Hct 41.6 % (30.3-42.9) 09/17/16 09:15 MCV 85 fl (79-97) 09/17/16 09:15 MCH 27 pg (28-32) L 09/17/16 09:15 MCHC 32 % (30-34) 09/17/16 09:15 RDW 16.9 % (13.2-15.2) H 09/17/16 09:15 Plt Count 326 K/mm3 (140-440) 09/17/16 09:15 Lymph % (Auto) 4.9 % (13.4-35.0) L 09/17/16 09:15 [place] % (Auto) 5.5 % (0.0-7.3) 09/17/16 09:15 Eos % (Auto) 0.3 % (0.0-4.3) 09/17/16 09:15 Baso % (Auto) 0.3 % (0.0-1.8) 09/17/16 09:15 Lymph # 0.6 K/mm3 (1.2-5.4) L 09/17/16 09:15 [place] # 0.7 K/mm3 (0.0-0.8) 09/17/16 09:15 Eos # 0.0 K/mm3 (0.0-0.4) 09/17/16 09:15 Baso # 0.0 K/mm3 (0.0-0.1) 09/17/16 09:15 Seg Neutrophils % 89.0 % (40.0-70.0) H 09/17/16 09:15 Seg Neutrophils # 10.8 K/mm3 (1.8-7.7) H 09/17/16 09:15 PT 14.9 Sec. (12.2-14.9) 09/17/16 09:15 INR 1.18 (0.87-1.13) H 09/17/16 09:15 APTT 29.4 Sec. (24.2-36.6) 09/17/16 09:15 Sodium 136 mmol/L (137-145) L 09/17/16 09:15 Potassium 4.7 mmol/L (3.6-5.0) 09/17/16 09:15 Chloride 100.7 mmol/L (98-107) 09/17/16 09:15 Carbon Dioxide 20 mmol/L (22-30) L 09/17/16 09:15 Anion Gap 20 mmol/L 09/17/16 09:15 BUN 47 mg/dL (7-17) H 09/17/16 09:15 Creatinine 1.6 mg/dL (0.7-1.2) H 09/17/16 09:15 Estimated GFR 37 ml/min 09/17/16 09:15 BUN/Creatinine Ratio 29.37 % 09/17/16 09:15 Glucose 97 mg/dL (65-100) 09/17/16 09:15 POC Glucose 122 (70-105) H 09/17/16 11:20 Lactic Acid 1.6 mmol/L (0.7-2.0) 09/17/16 09:15 Calcium 8.7 mg/dL (8.4-10.2) 09/17/16 09:15 Magnesium 2.3 mg/dL (1.7-2.3) 09/17/16 09:15 Total Bilirubin 0.3 mg/dL (0.1-1.2) 09/17/16 09:15 Direct Bilirubin < 0.2 mg/dL (0-0.2) 09/17/16 09:15 AST 20 units/L (5-40) 09/17/16 09:15 ALT 7 units/L (7-56) 09/17/16 09:15 Alkaline Phosphatase 83 units/L (35-129) 09/17/16 09:15 Ammonia 21.0 umol/L (25-60) L 09/17/16 09:25 Total Protein 6.0 g/dL (6.3-8.2) L 09/17/16 09:15 Albumin 2.5 g/dL (3.9-5) L 09/17/16 09:15 Albumin/Globulin Ratio 0.7 % 09/17/16 09:15 TSH 2.400 mlU/mL (0.270-4.200) 09/17/16 09:15 Urine Color Yellow (Yellow) 09/17/16 10:07 Urine Turbidity Slightly-cloudy (Clear) 09/17/16 10:07 Urine pH 5.0 (5.0-7.0) 09/17/16 10:07 Ur Specific [place] 1.020 (1.003-1.030) 09/17/16 10:07 Urine Protein <15 mg/dl mg/dL (Negative) 09/17/16 10:07 Urine Glucose (UA) 50 mg/dL (Negative) 09/17/16 10:07 Urine Ketones Neg mg/dL (Negative) 09/17/16 10:07 Urine Blood Neg (Negative) 09/17/16 10:07 Urine Nitrite Neg (Negative) 09/17/16 10:07 Urine Bilirubin Neg (Negative) 09/17/16 10:07 Urine Urobilinogen < 2.0 mg/dL (<2.0) 09/17/16 10:07 Ur Leukocyte Esterase Neg (Negative) 09/17/16 10:07 Urine WBC (Auto) 2.0 /HPF (0.0-6.0) 09/17/16 10:07 Urine RBC (Auto) 2.0 /HPF (0.0-6.0) 09/17/16 10:07 U Epithel Cells (Auto) 2.0 /HPF (0-13.0) 09/17/16 10:07 Urine Bacteria (Auto) 2+ /HPF (Negative) 09/17/16 10:07 Urine Mucus 3+ /HPF 09/17/16 10:07 Ur Yeast w Hyphae 2+ /HPF 09/17/16 10:07 Salicylates < 0.3 mg/dL (2.8-20.0) L 09/17/16 09:15 Urine Opiates Screen Presumptive negative 09/17/16 10:07 Urine Methadone Screen Presumptive negative 09/17/16 10:07 Acetaminophen < 15.0 ug/mL (10.0-30.0) 09/17/16 09:15 Ur Barbiturates Screen Presumptive negative 02/18/17 10:07 Ur Phencyclidine Scrn Presumptive negative 09/17/16 10:07 Ur Amphetamines Screen Presumptive negative 09/17/16 10:07 U Benzodiazepines Scrn Presumptive negative 09/17/16 10:07 Urine Cocaine Screen Presumptive negative 09/17/16 10:07 U Marijuana (THC) Screen Presumptive negative 09/17/16 10:07 Drugs of Abuse Note Disclamer 09/17/16 10:07 Plasma/Serum Alcohol < 0.01 gm% (0-0.07) 09/17/16 09:15 - Imaging and Cardiology Chest x-ray: image reviewed (bilateral pleural effusions) Assessment and Plan Advance Directives: Yes (patient will like to maintain for code especially until speaks with oncolog) VTE prophylaxis?: Chemical Plan of care discussed with patient/family: Yes - Patient Problems (1) Ascites Current Visit: Yes Status: Acute Qualifiers: Ascites type: malignant Qualified Code(s): R18.0 - Malignant ascites Plan to address problem: Patient presents with a second episode of malignant ascites. Patient being admitted this time for therapeutic tap. Patient has become more shortness of breath more lethargic and more abdominal pain. Last time patient had paracentesis was [facility]. We'll reconsult [facility]. Serious recommendation should be made about a more permanent drain if patient is returning to the hospital every 2 weeks. Patient had last procedure 2 weeks ago and has more distention now. If patient is only getting 2 weeks between taps more permanent arrangement may be made versus a more conservative approach. Patient has not seen [place] [facility] yet. Given my physical exam and patient's poor functional status and hospice may be appropriate. We'll ask [place] [facility] kidney see patient in house we'll consult Dr. Izquierdo see if any other recommendations can be added. Patient has a history of breast cancer and bilateral mastectomy. This was discussed with patient. We'll discuss with patient would like to see oncology recommendations first and I agree. (2) Hypoglycemia, unspecified Current Visit: Yes Status: Acute Plan to address problem: Glycemia multifactorial secondary to malignancy and malnutrition will see if patient can tolerate GI soft diet. We'll place patient on D5 normal saline to see if we can maintain her blood sugars. And will put on Accu-Cheks every 6 hourly with low-dose sliding scale insulin. We'll hold Lantus hold oral hypoglycemic. The patient continues to have hypoglycemia will switch fluids to D10. 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 At this point patient appears to be intravascularly volume depleted and total-body overloaded. We'll not be too aggressive with fluids. Because of the amount of ascites. We'll add a little normal saline to correct intravascular volume. Albumin also may be ideal. Will obtain renal consult. (4) THIAGO (acute kidney injury) Current Visit: No Status: Acute Plan to address problem: See above renal insufficiency. Suspect intravascular volume depletion. (5) DM type 2 (diabetes mellitus, type 2) Current Visit: No Status: Acute Qualifiers: Diabetes mellitus complication status: with circulatory complication Diabetes mellitus complication detail: D Diabetic retinopathy severity: D Proliferative retinopathy type: P Diabetes mellitus macular edema: D Diabetes mellitus medical records coordinator insulin use: D Laterality: L Chronic kidney disease stage: C Plan to address problem: We'll hold Lantus hold Amaryl as mentioned before Accu-Cheks every 6 hours. (6) Dyspnea Current Visit: No Status: Acute Qualifiers: Dyspnea type: unspecified Qualified Code(s): R06.00 - Dyspnea, unspecified Plan to address problem: Dyspnea secondary to marked ascites. Dr. Michael Harrell for therapeutic tap. (7) Pleural effusion Current Visit: No Status: Acute Plan to address problem: Secondary to malignancy most likely.
[2016-09-17] MEDS ORDERED: D50W (25GM) IV PRN (12:47)
[2016-09-17] MEDS: ZOFRAN IV PRN ×2 (14:16→22:30)
--- NOTE | 2016-09-17 14:24 | Admit Criteria Form ---
Admission Criteria Documentation: DIABETES, HYPOGLYCEMIA Clinical Indications for Admission to Inpatient Care (Place 'X' for any and all applicable criteria): Admission is indicated for ALL of the following (1)(2)(3)(4)(5): [X ]I. Suspected or documented hypoglycemia (plasma glucose less than 50 mg/ dL (2.78 mmol/L)) with severe clinical manifestations or issues as indicated by ANY ONE of the following: [X ]a) Altered mental status (eg, coma, confusion) [ ]b) Seizure [ ]c) Ataxia [ ]d) Dysphasia [ ]e) Focal neurologic deficit(6) [ ]f) Severe weakness or fatigue [ ]g) Significant clinical signs or symptoms that do not resolve with treatment [ ]h) Hypoglycemia induced by ANY ONE of the following(7)(8)(9): [ ]i) Sulfonylurea(10) [ ]ii) Long-acting insulin (eg, half-life more than 6 hours ) (11) [X ]II. Management at other levels of care (See General Criteria: Observation Care) is not feasible because of ANY ONE of the following: [X ]a) Condition was not adequately corrected with treatment at other levels of care. [ ]b) Treatment at other levels of care is not appropriate because of condition severity (eg, coma). Extended stay beyond goal length of stay may be needed for(3)(12)(19): [ ]a) Long acting sulfonylurea-inducing hypoglycemia (10) [ ]b) Presentation in coma [ ]c) Identified etiology of hypoglycemia requires ongoing care (eg, infection ) [ ]d) Neurologic deficit [ ]e) Active serious comorbidities (eg, renal failure, heart failure) The original [employer] content created by [employer] has been revised. The portions of the content which have been revised are identified through the use of italic text or in bold, and [employer] [facility] has neither reviewed nor approved the modified material.All other unmodified content is copyright [employer] [facility]. Please see references footnoted in the original [employer] [facility] edition 2016 Admission Criteria Met: Yes
[2016-09-17] MEDS: DUONEB 0.5 MG-3 MG/3 ML SOLN IH SCH ×2 (14:31→20:25)
[2016-09-17] MEDS: REGLAN IV PRN (16:35)
[2016-09-17] MEDS: PROTONIX IV SCH (16:41)
[2016-09-17] MEDS: D5NS 1,000 ML IV SCH (16:41)
--- NOTE | 2016-09-17 18:12 | Gastroenterology Consultation ---
History of Present Illness - Reason for Consult Consult date: 09/17/16 Malignant Ascites Requesting physician: NICHOL PEREZ - History of Present Illness The patient was seen by Dr Harrell about 2-4 weeks ago for cryptogenic ascites. Fluid aspiration showed malignant cells, c/w breast primary (and the patient has a hx of breast CA x 2 in 1992 and 2002). She returned to the ER for increased abdominal girth over the last 2 weeks. It has led to decreased appetite and even vomiting at home. She denies severe pain. She has an upcoming appt with Ashkan Jones but has not seen him yet. They have not had a paracentesis since leaving the hospital. Past History Past Medical History: anemia, cancer (Breast Cancer x 2 in the past, as well as new malignant ascites (likely recurrent breast)), diabetes, GERD. denies: acute [place], atrial fib, arrhythmia, arthritis, CAD, COPD, dialysis, DVT, ESRD, heart failure, hepatitis, HIV/AIDS, hyperthyroidism, hypertension, hyperlipidemia, hypothyroidism, liver disease, migraines, pulmonary embolism, renal failure, sarcoidosis Social history: single, lives with family, full code. denies: smoking, alcohol abuse, prescription drug abuse, IV drug use Family history: no significant family history Medications and Allergies Allergies Allergy/AdvReac Type Severity Reaction Status Date / Time ampicillin Allergy Rash Verified 01/30/15 08:13 Home Medications Medication Instructions Recorded Confirmed Last Taken Type Apixaban [Eliquis] 5 mg PO BID 09/03/16 09/17/16 09/02/16 History Aspirin 81 mg PO DAILY 09/03/16 09/17/16 Unknown History AtorvaSTATin [Lipitor] 40 mg PO DAILY 09/03/16 09/17/16 Unknown History Dorzolamide HCl 1 drop OU BID 09/03/16 09/17/16 Unknown History Glimepiride [Amaryl] 4 mg PO BID 09/03/16 09/17/16 Unknown History Insulin Glargine [Lantus VIAL] 6 unit SUB-Q QHS 09/03/16 09/17/16 Unknown History LORazepam [Ativan] 0.5 mg PO BID PRN 09/03/16 09/17/16 Unknown History Travoprost (Benzalkonium) 1 drop OU HS 09/03/16 09/17/16 Unknown History [Travoprost 0.004% Eye Drop] Propranolol [Inderal] 80 mg PO BID #60 tablet 09/07/16 09/17/16 Unknown Rx Cholecalciferol (Vitamin D3) 5,000 unit PO QWEEK 09/17/16 09/17/16 Unknown History [Vitamin D3] Diclofenac Sodium 75 mg PO BID 09/17/16 09/17/16 Unknown History HYDROcodone/APAP 7.5-325 [[place] 1 each PO Q6HR PRN 09/17/16 09/17/16 Unknown History 7.5/325] Omeprazole Magnesium [PriLOSEC Otc] 20 mg PO QDAY 09/17/16 09/17/16 Unknown History Active Meds: Active Medications Acetaminophen (Tylenol) 650 mg PO Q4H PRN PRN Reason: Pain MILD(1-3)/Fever >100.5/[place] Acetaminophen/Hydrocodone Bitart ([place] 7.5/325) 1 each PO Q6H PRN PRN Reason: Pain, MODERATE Albuterol/Ipratropium (Duoneb 0.5 Mg-3 Mg/3 Ml Soln) 1 ampul IH Q6HRT LON Last Admin: 09/17/16 14:31 Dose: 1 ampul Aspirin (Baby Aspirin) 81 mg PO DAILY LON Atorvastatin Calcium (Lipitor) 40 mg PO QHS LON Bisacodyl (Dulcolax) 10 mg [place] QDAY PRN PRN Reason: Constipation unrelieved by MOM Dextrose (D50w (25gm)) 50 ml IV PRN PRN PRN Reason: Hypoglycemia Dextrose/Sodium Chloride (D5ns) 1,000 mls @ 42 mls/hr IV DIRECT LON Last Admin: 09/17/16 16:41 Dose: 42 mls/hr Insulin Human Regular (Novolin R) 0 units SUB-Q Q6HR LON PRN Reason: Protocol Latanoprost ([place] 0.005%) 1 drops OU QPM LON Lorazepam (Ativan) 0.5 mg PO BID PRN PRN Reason: Anxiety Magnesium Hydroxide (Milk Of Magnesia) 30 ml PO Q4H PRN PRN Reason: Constipation Metoclopramide HCl (Reglan) 5 mg IV Q8H PRN PRN Reason: Vomiting Last Admin: 09/17/16 16:35 Dose: 5 mg Morphine Sulfate (Morphine) 2 mg IV Q4H PRN PRN Reason: Pain, SEVERE Ondansetron HCl (Zofran) 4 mg IV Q8H PRN PRN Reason: N/V unrelieved by Reglan Last Admin: 09/17/16 14:16 Dose: 4 mg Pantoprazole Sodium (Protonix) 40 mg IV QDAY [facility] Last Admin: 09/17/16 16:41 Dose: 40 mg Propranolol HCl (Inderal) 80 mg PO BID [facility] Review of Systems - Review of Systems All systems: negative (as noted in the HPI) Exam - Constitutional Vital Signs: Temp Pulse Resp BP Pulse Ox 97.9 F 100 H 28 H 110/77 94 09/17/16 13:30 09/17/16 16:00 09/17/16 16:00 09/17/16 16:24 09/17/16 16:00 General appearance: no acute distress - EENT Eyes: PERRL, EOM intact ENT: hearing intact, poor dentition, no thrush - Neck Neck: supple, normal ROM - Respiratory Respiratory effort: normal Respiratory: bilateral: CTA - Cardiovascular Rhythm: regular Heart Sounds: Present: S1 & S2 Extremities: no ischemia, No edema - Gastrointestinal General gastrointestinal: Present: soft, non-tender, distended (Not tense) - Integumentary Integumentary: Present: clear, warm, dry - Neurologic Neurological: oriented to person, oriented to place, strength equal bilaterally - Labs CBC & Chem 7: 09/17/16 09:15 09/17/16 09:15 Lab Results: Laboratory Results - last 24 hr 09/17/16 09/17/16 13:36 18:00 POC Glucose 147 H 125 H Assessment and Plan - Patient Problems (1) Malignant ascites Current Visit: Yes Status: Chronic Plan to address problem: - Likely breast given immunostains and hx of breast CA in the past. - Will order palliative US paracentesis tomorrow (will need to continue to hold Eliquis for this). - No further recs per our service; Oncology has been consulted. - Will sign off; please call if needed.
[2016-09-17] MEDS: XALATAN 0.005% OU SCH (19:07)
[2016-09-17] MEDS ORDERED: ELIQUIS PO SCH (22:00)
[2016-09-17] MEDS ORDERED: NON-FORMULARY (Travoprost (Benzalkonium) [Travoprost 0.004% Eye Drop] 1 DROP) OU SCH (22:00)
[2016-09-17] MEDS ORDERED: AMARYL PO SCH (22:00)
[2016-09-17] MEDS ORDERED: LEVEMIR SUB-Q SCH (22:00)
--- NOTE | 2016-09-18 01:22 | Consultation ---
REASON FOR CONSULTATION: Metastatic breast cancer. History is obtained from the patient, her family numbers who are at bedside as well as her chart. HISTORY OF PRESENT ILLNESS: The patient is an 81-year-old -[place] female initially diagnosed with right breast cancer in 1992 for which she underwent a mastectomy. She had her second breast cancer in 2002, left breast and underwent a mastectomy. She states that she was a stage IV breast cancer. Upon diagnosis, underwent chemotherapy, but no radiation therapy. In beginning of August, the patient has now returned to [facility] because of increase in shortness of breath and abdominal discomfort. She has also had some altered mental status according to the daughter. Six liters of ascitic fluid was removed. Pathology from 09/16/2016, showed adenocarcinoma. She now presents again with shortness of breath and increased abdominal discomfort. The patient is presently on Eliquis for acute thromboembolism of the right lower extremity, diagnosed in 06/2016. PAST MEDICAL HISTORY: 1. Acute elbow embolus of the right lower extremity. 2. Acute renal failure. 3. Calculus of the right ureter. 4. Type 2 diabetes with use of insulin. 5. Hypertension. 6. Acute cystitis with hematuria.. 7. Hypercalcemia. 8. Hypercholesterolemia. 9. Osteoarthritis of multiple joints. SOCIAL HISTORY: The patient denies ever smoking. No alcohol or recreational drug use. FAMILY HISTORY: No history of breast cancer or any other malignancy that she is aware of. REVIEW OF SYSTEMS: GENERAL: The patient's daughter states that she has had recent 10-pound weight loss over the past 3 weeks and has been extremely weak. HEENT: No sore throat or ear pain reported. LUNGS: Increasing shortness of breath has already noted, no cough reported. CARDIOVASCULAR: The patient has had premature atrial contractions in her history. EXTREMITY: Edema. GI: Decreased appetite due to increasing abdominal girth. The patient has a history of GERD. GENITOURINARY: The patient had a history of acute cystitis. The patient also had a creatinine of 1.[address] has [address] by Dr. Welch. SKIN: No rash was reported. NEURO: Profound weakness. ENDOCRINE: The patient has type 2 diabetes and has been using insulin. Her last hemoglobin was 7.1. PHYSICAL EXAMINATION: GENERAL: The patient is a frail-appearing -[place] female lying supine. She is awake and alert, but bit slow to answer. VITAL SIGNS: Temperature 97.9. Blood pressure 110/77, pulse ranged in 96 to 105, and respirations 28. HEENT: Slight facial muscle wasting. O2 is in place by nasal cannula. Dry oral mucosa. LUNGS: Apices were clear. Bases were diminished. The patient was slightly tachypneic. HEART: Tachycardic. ABDOMEN: Massively distended. Bowel sounds present, ascites, somewhat firm. Lymph nodes palpable, small left supraclavicular node. EXTREMITIES: Bilateral lower extremity edema. LABORATORY DATA: Showed hemoglobin of 13.1, hematocrit 41.6, white count 12.1, and platelet count of 326,000, BUN 47, creatinine 1.6. 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 The patient reports that she was a stage 4, previously diagnosed. I have no records to confirm her history. Daughter is not clear, her mother is a disease process. We will order CA 27-29 to establish baseline. Await final pathology report from ascitic fluid obtained earlier in the month. As the patient has been on Eliquis, it will be held in preparation for undergoing a repeat paracentesis. The patient has been referred to Dr. Sage Jones done at [facility] as it is closer to home. I informed the patient and the family that he will discuss treatment options further once she sees him in [place]. Baseline CA 27-29 will be ordered at this time. 2. Acute right leg extremity deep venous thrombosis, hold Eliquis in preparation for possible paracentesis and also thoracentesis as chest x-ray shows that she has significant bilateral pleural fluid, continue on heparin, which can be stopped this hour prior to a planned procedure. 3. Deep venous thrombosis. 4. Hypertension. Continue on treatment protocol per Dr. Brigido Jones, her primary care physician. 5. Type 2 diabetes. Continue on insulin. The patient had been on 6 units of Lantus daily and it had been increased to 8 units if the blood sugar was greater than 110. 6. Renal insufficiency, presently creatinine is 1.6. We will follow serum creatinine while the patient inhouse. She will be seeing a Production Line [employer]der. The patient was being followed by Nephrology. 7. Nutritional support. Further recommendations will follow. JOB# [id number] JAIME/SAAD DICKSOND
[2016-09-18] MEDS: DUONEB 0.5 MG-3 MG/3 ML SOLN IH SCH ×4 (01:43→19:45)
[2016-09-18] MEDS: INDERAL PO SCH ×3 (04:30→21:41)
[2016-09-18 05:15] LABS: Basophils % (Auto) 0.9 % (0.0-1.8); Eosinophils % (Auto) 0.3 % (0.0-4.3); Hematocrit 38.8 % (30.3-42.9); Hemoglobin 12.5 gm/dl (10.1-14.3); Mean Corpuscular HGB Conc 32 % (30-34); Mean Corpuscular Hemoglobin 27 pg (28-32); Mean Corpuscular Volume 84 fl (79-97); Platelet Count 283 K/mm3 (140-440); Red Blood Count 4.62 M/mm3 (3.65-5.03); Red Cell Distribution Width 16.7 % (13.2-15.2); White Blood Count 11.3 K/mm3 (4.5-11.0)
[2016-09-18 05:34] LABS: BUN/Creatinine Ratio 25.5; Calcium 8.7 mg/dL (8.4-10.2); Potassium 4.5 mmol/L (3.6-5.0)
[2016-09-18] MEDS ORDERED: BABY ASPIRIN PO SCH (10:00)
[2016-09-18] MEDS ORDERED: LOVENOX SUB-Q SCH (10:00)
[2016-09-18] MEDS: REGLAN IV PRN ×2 (10:46→21:36)
--- NOTE | 2016-09-18 13:51 | Hem/Onc Progress Note ---
Assessment and Plan - Patient Problems (1) Malignant ascites Current Visit: Yes Status: Chronic Plan to address problem: Cytology from first paracentesis was positive for adenocarcinoma. Additional studies pending. Hopefully, paracentesis can be performed tomorrow. Spoke to GI , they have signed off at this time. (2) History of bilateral breast cancer Current Visit: Yes Status: Acute Plan to address problem: Patient s/p bilateral mastectomy - diagnosis between first diagnosis and second diagnosis about a decade apart 2002. Patient says she underwent chemotherapy and treatment with Arimidex. No adjuvant chest wall radiation therapy. No records to confirm treatment. Checked CA 27-29. Pt plans on following up with Dr. Ashkan Jones at [facility] office. (3) Renal insufficiency Current Visit: Yes Status: Acute Plan to address problem: Appears to be chronic problem. Followed by Nephrology. Subjective Date of service: 09/18/16 Interval history: Denies pain. Feels better. Appetite still not optimal. Didn't like using O2. Daughter at bedside says pt "given a break" from using NC as O2 saturation was 95%. Per daughter, pt unable to get paracentesis today as no staff. Objective - Constitutional Vitals: Last Vital Signs Temp 97.3 F L 09/18/16 08:00 Pulse 113 H 09/18/16 12:10 Resp 93 H 09/18/16 12:10 BP 120/66 09/18/16 08:00 Pulse Ox 96 09/18/16 12:00 Pain Intensity (0-10): denies any pain General appearance: no acute distress - EENT Eyes: PERRL ENT: hearing intact - Neck Neck: supple, normal ROM - Respiratory Respiratory effort: Positive: normal Respiratory: bilateral: diminished (Decreased BS at bases.) - Cardiovascular Heart Rate: 110 Rhythm: regular Extremities: normal temperature, normal color Extremity abnormal: edema - Gastrointestinal General gastrointestinal: Present: tender (RUQ little tender), distended, normal bowel sounds Localized Gastrointestinal: tender: RUQ (Slight) Rectal Exam: deferred - Genitourinary Female genitourinary: Present: deferred - Integumentary Integumentary: clear, warm, dry - Musculoskeletal Musculoskeletal: generalized weakness - Neurologic Neurologic: moves all extremities - Psychiatric Psychiatric: appropriate mood/affect, cooperative - Labs Lab Results: Laboratory Results - last 24 hr 09/17/16 09/17/16 09/18/16 18:00 21:34 04:17 WBC 11.3 H RBC 4.62 Hgb 12.5 Hct 38.8 MCV 84 MCH 27 L MCHC 32 RDW 16.7 H Plt Count 283 Lymph % (Auto) 5.5 L [place] % (Auto) 9.4 H Eos % (Auto) 0.3 Baso % (Auto) 0.9 Lymph # 0.6 L [place] # 1.1 H Eos # 0.0 Baso # 0.1 Seg Neutrophils % 83.9 H Seg Neutrophils # 9.5 H Sodium Potassium Chloride Carbon Dioxide Anion Gap BUN Creatinine Estimated GFR BUN/Creatinine Ratio Glucose POC Glucose 125 H 111 H Calcium 09/18/16 09/18/16 09/18/16 04:17 05:32 11:54 WBC RBC Hgb Hct MCV MCH MCHC RDW Plt Count Lymph % (Auto) [place] % (Auto) Eos % (Auto) Baso % (Auto) Lymph # [place] # Eos # Baso # Seg Neutrophils % Seg Neutrophils # Sodium 143 D Potassium 4.5 Chloride 105.0 Carbon Dioxide 24 Anion Gap 19 BUN 51 H Creatinine 2.0 H Estimated GFR 29 BUN/Creatinine Ratio 25.50 Glucose 93 POC Glucose 102 99 Calcium 8.7
[2016-09-18] MEDS: PROTONIX IV SCH (14:06)
--- NOTE | 2016-09-18 15:08 | Progress Note ---
Assessment and Plan - Patient Problems (1) Acute respiratory failure Current Visit: Yes Status: Acute Qualifiers: Respiratory failure complication: R Plan to address problem: supplemental oxygen, nebs, aspiration precautions, supportive care. (2) ARF (acute renal failure) Current Visit: Yes Status: Acute Qualifiers: Acute renal failure type: A Plan to address problem: IVF replacement, monitor uop q shift (3) Malignant ascites Current Visit: Yes Status: Chronic Plan to address problem: Pending therapeutic paracentesis. (4) Hypertension Current Visit: No Status: Acute Qualifiers: Hypertension type: H Plan to address problem: monitor bp q shift (5) DVT prophylaxis Current Visit: Yes Status: Acute History Interval history: Pt lying in bed, Pt chronically ill appearing, Pt in good spirits. Pt daughter at bedside. Discussed care plan. Hospitalist Physical - Constitutional Vitals: Temp Pulse Resp BP Pulse Ox 97.3 F L 113 H 93 H 120/66 96 09/18/16 08:00 09/18/16 12:10 09/18/16 12:10 09/18/16 10:00 09/18/16 12:00 General appearance: Present: mild distress, cachectic - EENT Eyes: Present: PERRL, EOM intact ENT: hearing intact - Neck Neck: Present: supple - Respiratory Respiratory: bilateral: diminished - Cardiovascular Rhythm: regular Heart Sounds: Present: S1 & S2 - Extremities Extremities: no ischemia Extremity abnormal: edema Peripheral Pulses: within normal limits - Abdominal General gastrointestinal: soft, non-tender, distended, normal bowel sounds, no hepatomegaly, no splenomegaly, no mass - Integumentary Integumentary: Present: clear, dry - Psychiatric Psychiatric: appropriate mood/affect, cooperative - Neurologic Neurologic: CNII-XII intact Results - Labs CBC & Chem 7: 09/18/16 04:17 09/18/16 04:17 Labs: Laboratory Last Values WBC 11.3 K/mm3 (4.5-11.0) H 09/18/16 04:17 RBC 4.62 M/mm3 (3.65-5.03) 09/18/16 04:17 Hgb 12.5 gm/dl (10.1-14.3) 09/18/16 04:17 Hct 38.8 % (30.3-42.9) 09/18/16 04:17 MCV 84 fl (79-97) 09/18/16 04:17 MCH 27 pg (28-32) L 09/18/16 04:17 MCHC 32 % (30-34) 09/18/16 04:17 RDW 16.7 % (13.2-15.2) H 09/18/16 04:17 Plt Count 283 K/mm3 (140-440) 09/18/16 04:17 Lymph % (Auto) 5.5 % (13.4-35.0) L 09/18/16 04:17 [place] % (Auto) 9.4 % (0.0-7.3) H 09/18/16 04:17 Eos % (Auto) 0.3 % (0.0-4.3) 09/18/16 04:17 Baso % (Auto) 0.9 % (0.0-1.8) 09/18/16 04:17 Lymph # 0.6 K/mm3 (1.2-5.4) L 09/18/16 04:17 [place] # 1.1 K/mm3 (0.0-0.8) H 09/18/16 04:17 Eos # 0.0 K/mm3 (0.0-0.4) 09/18/16 04:17 Baso # 0.1 K/mm3 (0.0-0.1) 09/18/16 04:17 Seg Neutrophils % 83.9 % (40.0-70.0) H 09/18/16 04:17 Seg Neutrophils # 9.5 K/mm3 (1.8-7.7) H 09/18/16 04:17 PT 14.9 Sec. (12.2-14.9) 09/17/16 09:15 INR 1.18 (0.87-1.13) H 09/17/16 09:15 APTT 29.4 Sec. (24.2-36.6) 09/17/16 09:15 Sodium 143 mmol/L (137-145) D 09/18/16 04:17 Potassium 4.5 mmol/L (3.6-5.0) 09/18/16 04:17 Chloride 105.0 mmol/L (98-107) 09/18/16 04:17 Carbon Dioxide 24 mmol/L (22-30) 09/18/16 04:17 Anion Gap 19 mmol/L 09/18/16 04:17 BUN 51 mg/dL (7-17) H 09/18/16 04:17 Creatinine 2.0 mg/dL (0.7-1.2) H 09/18/16 04:17 Estimated GFR 29 ml/min 09/18/16 04:17 BUN/Creatinine Ratio 25.50 % 09/18/16 04:17 Glucose 93 mg/dL (65-100) 09/18/16 04:17 POC Glucose 99 (70-105) 09/18/16 11:54 Lactic Acid 3.2 mmol/L (0.7-2.0) H* 09/17/16 12:10 Calcium 8.7 mg/dL (8.4-10.2) 09/18/16 04:17 Magnesium 2.3 mg/dL (1.7-2.3) 09/17/16 09:15 Total Bilirubin 0.3 mg/dL (0.1-1.2) 09/17/16 09:15 Direct Bilirubin < 0.2 mg/dL (0-0.2) 09/17/16 09:15 AST 20 units/L (5-40) 09/17/16 09:15 ALT 7 units/L (7-56) 09/17/16 09:15 Alkaline Phosphatase 83 units/L (35-129) 09/17/16 09:15 Ammonia 21.0 umol/L (25-60) L 09/17/16 09:25 Total Protein 6.0 g/dL (6.3-8.2) L 09/17/16 09:15 Albumin 2.5 g/dL (3.9-5) L 09/17/16 09:15 Albumin/Globulin Ratio 0.7 % 09/17/16 09:15 TSH 2.400 mlU/mL (0.270-4.200) 09/17/16 09:15 Urine Color Yellow (Yellow) 09/17/16 10:07 Urine Turbidity Slightly-cloudy (Clear) 09/17/16 10:07 Urine pH 5.0 (5.0-7.0) 09/17/16 10:07 Ur Specific [place] 1.020 (1.003-1.030) 09/17/16 10:07 Urine Protein <15 mg/dl mg/dL (Negative) 09/17/16 10:07 Urine Glucose (UA) 50 mg/dL (Negative) 09/17/16 10:07 Urine Ketones Neg mg/dL (Negative) 09/17/16 10:07 Urine Blood Neg (Negative) 09/17/16 10:07 Urine Nitrite Neg (Negative) 09/17/16 10:07 Urine Bilirubin Neg (Negative) 09/17/16 10:07 Urine Urobilinogen < 2.0 mg/dL (<2.0) 09/17/16 10:07 Ur Leukocyte Esterase Neg (Negative) 09/17/16 10:07 Urine WBC (Auto) 2.0 /HPF (0.0-6.0) 09/17/16 10:07 Urine RBC (Auto) 2.0 /HPF (0.0-6.0) 09/17/16 10:07 U Epithel Cells (Auto) 2.0 /HPF (0-13.0) 09/17/16 10:07 Urine Bacteria (Auto) 2+ /HPF (Negative) 09/17/16 10:07 Urine Mucus 3+ /HPF 09/17/16 10:07 Ur Yeast w Hyphae 2+ /HPF 09/17/16 10:07 Salicylates < 0.3 mg/dL (2.8-20.0) L 09/17/16 09:15 Urine Opiates Screen Presumptive negative 09/17/16 10:07 Urine Methadone Screen Presumptive negative 09/17/16 10:07 Acetaminophen < 15.0 ug/mL (10.0-30.0) 09/17/16 09:15 Ur Barbiturates Screen Presumptive negative 09/17/16 10:07 Ur Phencyclidine Scrn Presumptive negative 09/17/16 10:07 Ur Amphetamines Screen Presumptive negative 09/17/16 10:07 U Benzodiazepines Scrn Presumptive negative 09/17/16 10:07 Urine Cocaine Screen Presumptive negative 09/17/16 10:07 U Marijuana (THC) Screen Presumptive negative 09/17/16 10:07 Drugs of Abuse Note Disclamer 09/17/16 10:07 Plasma/Serum Alcohol < 0.01 gm% (0-0.07) 09/17/16 09:15
[2016-09-18] MEDS: D5NS 1,000 ML IV SCH (17:40)
[2016-09-18] MEDS: XALATAN 0.005% OU SCH (17:43)
[2016-09-19] MEDS: DUONEB 0.5 MG-3 MG/3 ML SOLN IH SCH ×2 (02:06→07:01)
[2016-09-19] MEDS ORDERED: PROVENTIL IH PRN (07:09)
[2016-09-19] MEDS ORDERED: DUONEB 0.5 MG-3 MG/3 ML SOLN IH SCH (14:00)
--- NOTE | 2016-09-19 15:33 | Ultrasound Report ---
ULTRASOUND PARACENTESIS History: Malignant ascites Description of procedure: Informed consent was obtained. Sterile technique was utilized. 1% lidocaine for anesthesia. Using ultrasound guidance, a 5 [place] centesis needle was advanced into the peritoneal space in the left lower quadrant. There was spontaneous return of relatively clear, yellow fluid. 3.8 L of fluid was aspirated and discarded. No complications. Impression: Successful ultrasound guided paracentesis as described.
--- NOTE | 2016-09-19 16:43 | Discharge Summary ---
Providers - Providers Date of Admission: 09/17/16 12:15 Attending physician: JOSHUA CORTES 09/17/16 12:40 Consult to Physician [CONS] Routine Consulting Provider: CLAUDIA BECERRIL Reason For Exam: malignant ascites Place consult to:: DR. BECERRIL Notified:: [facility] Phone number called:: [phone] Was contact made?: Yes If yes, spoke with:: JASSON Time called:: 16:54 Comment:: PAT NOTIFIED Primary care physician: BSS [employer] ARCHITECT Hospitalization Condition: Fair Disposition: STILL A PATIENT - Discharge Diagnoses (1) Acute respiratory failure Status: Acute Qualifiers: Respiratory failure complication: R (2) ARF (acute renal failure) Status: Acute Qualifiers: Acute renal failure type: A (3) Malignant ascites Status: Chronic (4) Hypertension Status: Acute Qualifiers: Hypertension type: H Comment: will stop lotrel start norvasc 5mg po bid will fu this wk in office (5) DVT prophylaxis Status: Acute Exam - Constitutional Vitals: Temp Pulse Resp BP Pulse Ox 97.6 F 116 H 16 106/72 96 09/19/16 07:00 09/19/16 13:17 09/19/16 13:17 09/19/16 07:00 09/19/16 08:58 Plan Follow up with: AZUCENA UP MD [Primary Care Provider] - 3-5 Days Prescriptions: Ciprofloxacin HCl [Ciprofloxacin TAB] 500 mg PO Q12H #10 tab
[2016-09-19 18:27] VITALS: BP 120/60
--- NOTE | 2016-09-20 08:05 | Procedure Note ---
Date of procedure: 09/19/16 Pre-op diagnosis: malignant ascites Post-op diagnosis: same Procedure: US guided paracentesis Findings: moderate ascites Anesthesia: local Surgeon: BO BARAJAS Estimated blood loss: none Pathology: none Specimen disposition: discarded Condition: stable Disposition: floor
== END 2016-09-19 18:32 | disposition home health service (06) | DRG 597 ==
LOC: ED 08:31 → 3A 12:15
PROVIDERS: ADMIT Internal Medicine; ATTEND Internal Medicine
PROC: 0W9G3ZZ Drainage of Peritoneal Cavity, Percutaneous Approach (ICD-10-PCS; principal; 2016-09-19)
DX: C50.919 Malignant neoplasm of unspecified site of unspecified female breast (principal); J96.01 Acute respiratory failure with hypoxia; B20 Human immunodeficiency virus [HIV] disease; N18.6 End stage renal disease; R18.0 Malignant ascites; N17.9 Acute kidney failure, unspecified; I13.2 Hypertensive heart and chronic kidney disease with heart failure and with stage 5 chronic kidney disease, or end stage renal disease; I82.491 Acute embolism and thrombosis of other specified deep vein of right lower extremity; J91.0 Malignant pleural effusion; I48.91 Unspecified atrial fibrillation; K21.9 Gastro-esophageal reflux disease without esophagitis; E11.649 Type 2 diabetes mellitus with hypoglycemia without coma; M19.90 Unspecified osteoarthritis, unspecified site; I25.10 Atherosclerotic heart disease of native coronary artery without angina pectoris; J44.9 Chronic obstructive pulmonary disease, unspecified; E11.22 Type 2 diabetes mellitus with diabetic chronic kidney disease; I50.9 Heart failure, unspecified; Z88.8 Allergy status to other drugs, medicaments and biological substances; Z79.4 Long term (current) use of insulin; Z90.13 Acquired absence of bilateral breasts and nipples; Z90.710 Acquired absence of both cervix and uterus; Z99.2 Dependence on renal dialysis; Z86.711 Personal history of pulmonary embolism
CPT/HCPCS: 36415; 49083; 71010; 80048; 80053; 80074; 80307; 80320; 81001; 82140; 82962; 83735; 84443; 85025; 85610; 85730; 86300; 93005; 93010; 94640; 94760; 96374; A9270-GY; C9113; G0480; J2270; J2405; J2765; J7042